=== PATIENT | male | born 1945 | race Caucasian/White ===

== ENCOUNTER → 2018-10-13 | Outpatient (CLI) | payer MEDICARE, OTHER ==
[2018-10-13 10:32] LABS: ABG BASE EXCESS 6.1 MMOL/L (-2.5-2.5); ABG OXYGEN SATURATION 96 % (94-100); ABG PCO2 48 MMHG (35-45); ABG PH 7.42 (7.37-7.43); ABG PO2 68 MMHG (79-93); ABG TCO2 31.9 MMOL/L (21.0-31.0)
[2018-10-13 10:33] LABS: BUN/CREATININE RATIO 16; CREATININE SERUM 0.99 MG/DL (0.60-1.30); GFR ESTIMATED > 60
[2018-10-13 10:34] LABS: ALLENS TEST YES-POS; INSPIRED O2 ROOM AIR; PATIENT TEMP 98.7; VENTILATOR NO
== END ==
LOC: LAB 09:35
PROVIDERS: ATTEND Nurse Practitioner Family
DX: J44.9 Chronic obstructive pulmonary disease, unspecified (principal); E66.01 Morbid (severe) obesity due to excess calories; G47.30 Sleep apnea, unspecified; E66.9 Obesity, unspecified
CPT/HCPCS: 36415; 82565; 82805; 84520

== ENCOUNTER → 2018-10-28 | Outpatient (CLI) | payer MEDICARE, OTHER ==
[~2018-10-28] MED LIST: IOHEXOL 350 MG/ML 100 ML (OMNIPAQUE 350) VIAL IV ONE; NS 100 ML (IVPB) BAG IV ONE; RECEIVED CONTRAST (Hold Metformin) IV SCH; RT-ALBUTEROL SULF 2.5 MG/3 ML PRE-MIX VIAL INH ONE; RT-ALBUTEROL SULF 2.5 MG/3 ML PRE-MIX VIAL ONE
--- NOTE | 2018-10-28 14:39 | Diagnostic Imaging Report ---
PROCEDURE: CT chest with contrast only. TECHNIQUE: Multiple contiguous axial images were obtained through the chest after administration of intravenous contrast. INDICATION: Lung nodule. COMPARISON: There are no prior CT chest examinations available for comparison. FINDINGS: There are two roughly 6 mm noncalcified nodules in the right midlung (images 28-30 of 74). There may also be a 7 mm nodule in the anterior aspect of the right midlung (image 32 of 74). I suspect that these nodules are benign. Even so, I would recommend that a short-term (6 month) followup CT chest exam be performed for further study. There is no other parenchymal lung mass identified. There is no sign of failure, pneumonia or a pleural effusion to indicate an acute abnormality. The heart size is within normal limits. There are dense coronary artery calcifications evident. The aorta is not abnormally dilated and there is no sign of dissection. There is no defect within the pulmonary arteries to indicate a pulmonary embolus. There is no mediastinal or hilar adenopathy. Thyroid gland, where visualized, is unremarkable. The sections through the upper abdomen show that in the interval since the previous CT angio with bilateral runoffs exam of 10/01/2012, the gallstones within the gallbladder have increased in size. There is still no evidence for acute cholecystitis. The benign-appearing low-density nodule associated with the right adrenal gland seen previously is again evident and no different. The suspected cyst in the left lobe of the liver noted on the prior study is also unchanged. There does appear to be an aortic stent graft in place. The bone windows show no evidence for fracture or for destructive lesion. There are sternotomy wires and surgical clips evident. IMPRESSION: 1. There are three small noncalcified nodules in the right midlung. These are most likely benign. Recommendations as above. 2. There is no acute cardiopulmonary abnormality evident. 3. There is coronary artery disease and evidence of prior cardiac surgery. 4. There is cholelithiasis but there is no sign of acute cholecystitis. If further evaluation of the gallbladder is desired, then ultrasound would be recommended. 5. The right adrenal nodule appears stable and is most likely benign. Dictated by: Dictated on workstation # [id number]
== END ==
LOC: RT 12:26
PROVIDERS: ATTEND Nurse Practitioner Family
DX: J44.9 Chronic obstructive pulmonary disease, unspecified (principal); G47.30 Sleep apnea, unspecified; E66.01 Morbid (severe) obesity due to excess calories; R91.8 Other nonspecific abnormal finding of lung field; I25.10 Atherosclerotic heart disease of native coronary artery without angina pectoris; K80.20 Calculus of gallbladder without cholecystitis without obstruction
CPT/HCPCS: 71260; 94060; 94726; 94729

== ENCOUNTER → 2019-05-03 | Outpatient (CLI) | payer MEDICARE, OTHER ==
[2019-05-03 17:51] LABS: BUN/CREATININE RATIO 13; CREATININE SERUM 1.11 MG/DL (0.60-1.30); GFR ESTIMATED > 60
--- NOTE | 2019-05-11 09:27 | Diagnostic Imaging Report ---
PROCEDURE: CT chest with contrast only. TECHNIQUE: Multiple contiguous axial images were obtained through the chest after administration of intravenous contrast. Auto Exposure Controls were utilized during the CT exam to meet ALARA standards for radiation dose reduction. INDICATION: Followup lung nodule COMPARISON: CT chest of 10/28/2018 FINDINGS: Lungs and airway: No endoluminal nodule within the trachea. Stable linear 5 mm nodule along the left major fissure compatible with a benign intrapulmonary lymph node. Ill-defined 7 mm nodule in the upper lobe located along the minor fissure is stable and has a lentiform shape, also indicative of benign intrapulmonary lymph node. Lastly, there are two unchanged 4-5 mm pulmonary nodules in the superior segment of the right lower lobe near the major fissure. No new pulmonary nodule. Pleura: No pleural effusion or pneumothorax. Heart and mediastinum: Visualized thyroid is normal. No supraclavicular or axillary lymphadenopathy. No mediastinal, hilar or juxtaphrenic lymphadenopathy. Heart is mildly enlarged and status post CABG. No pericardial effusion. Normal caliber thoracic aorta. Upper abdomen: Partially imaged abdominal aortic aneurysm status post stent graft repair. Cholelithiasis is unchanged. Stable low-attenuation right adrenal nodule likely represents a benign adenoma. Hepatic cyst is unchanged. Musculoskeletal: No worrisome focal osseous lesions. IMPRESSION: 1. Diffuse scattered small pulmonary nodules are stable and can be considered benign in nature given long-term stability and small size. 2. No abnormality that would require dedicated followup imaging. Dictated by: Dictated on workstation # [id number]
== END ==
LOC: RAD 16:56
PROVIDERS: ATTEND Nurse Practitioner Family
DX: E66.01 Morbid (severe) obesity due to excess calories (principal); G47.30 Sleep apnea, unspecified; J44.9 Chronic obstructive pulmonary disease, unspecified; R91.8 Other nonspecific abnormal finding of lung field
CPT/HCPCS: 36415; 71260; 82565; 84520

== ENCOUNTER → 2020-05-04 | Outpatient (CLI) | payer MEDICARE, OTHER ==
[~2020-05-04] MED LIST changes: -IOHEXOL 350 MG/ML 100 ML (OMNIPAQUE 350) VIAL IV ONE; -NS 100 ML (IVPB) BAG IV ONE; -RECEIVED CONTRAST (Hold Metformin) IV SCH; -RT-ALBUTEROL SULF 2.5 MG/3 ML PRE-MIX VIAL ONE
== END ==
LOC: RT 10:13
PROVIDERS: ATTEND Nurse Practitioner Family
DX: J44.9 Chronic obstructive pulmonary disease, unspecified (principal)
CPT/HCPCS: 94060; 94726; 94729

== ENCOUNTER 2022-03-27 07:50 | Inpatient (IN) | payer MEDICARE, OTHER ==
[~2022-03-27] VITALS: Ht 172.7 cm; Wt 124.9 kg
--- NOTE | 2022-03-27 08:26 | History & Physical ---
History of Present Illness HPI/Chief Complaint CC: NSTEMI HPI: This is a 76yoWM clinic patient of Dr Edmondson and Dr Brizuela who has a h/o CABG 3-V, AAA repair, carotid stenosis with CHF and CKD who presents to 512 following worsened dyspnea at [facility] and more elevated troponin in need of Cardiology care. Dr Simon was consulted and will perform a cardiac cath. Source: patient Exam Limitations: no limitations Date Seen 03/27/22 Time Seen by a Provider: 11:00 Attending Physician No,Local Physician PCP Admitting Physician: Moira Steele DO Attending Physician: Moira Steele DO Referring Physician Date of Admission Home Medications & Allergies Home Medications Reviewed patient Home Medication Reconciliation performed by pharmacy medication reconciliations operations and maintenance technician and/or nursing. Patients Allergies have been reviewed. Allergies Allergies Coded Allergies No Allergy Information Available (Unverified10/28/18) Past Vsxstrr-Xxumvz-Nnqhdd Hx Past Med/Social Hx: Reviewed Nursing Past Med/Soc Hx, Reviewed and Corrections made Patient Social History Marrital Status: Employed/Student: retired ([employer]) Alcohol Use: Denies Use Smoking Status: Former Smoker Past Medical History Surgeries: Abdominal, CABG, Vascular Surgery Respiratory: Sleep Apnea Cardiac: Atrial Fibrillation, Cardiomyopathy, Chronic Edema/Swelling, Coronary Artery Disease, High Cholesterol, Hypertension Neurological: Neuropathy Genitourinary: Benign Prostatic Hyperpl, Renal Failure Gastrointestinal: Gastroesophageal Reflux Musculoskeletal: Arthritis Endocrine: Diabetes, Non-Insulin dep Review of Systems Constitutional: see HPI, malaise, weakness EENTM: no symptoms reported Respiratory: dyspnea on exertion, short of breath, wheezing Cardiovascular: chest pain Gastrointestinal: no symptoms reported Physical Exam Physical Exam Vital Signs Vital Signs - First Documented 03/27/22 10:00 Temp 36.0 Pulse 89 Resp 20 B/P (MAP) 138/80 (99) Pulse Ox 98 O2 Delivery Nasal Cannula O2 Flow Rate 2.00 Capillary Refill : Height, Weight, BMI Height: '" Weight: lbs. oz. kg; BMI Method: General Appearance: No Apparent Distress, WD/WN, Chronically ill, Obese Eyes: Bilateral Eye Normal Inspection, Bilateral Eye PERRL HEENT: PERRL/EOMI, Normal ENT Inspection, Pharynx Normal Neck: Full Range of Motion, Normal Inspection, Non Tender, Supple, Carotid Bruit Respiratory: Chest Non Tender, No Respiratory Distress, Accessory Muscle Use, Crackles, Decreased Breath Sounds, Wheezing Cardiovascular: No Gallop, No JVD, No Murmur, Normal Peripheral Pulses, Irregularly Irregular, Tachycardia Gastrointestinal: Normal Bowel Sounds, No Organomegaly, No Pulsatile Mass, Non Tender, Soft Back: Normal Inspection, No CVA Tenderness, No Vertebral Tenderness Extremity: Normal Capillary Refill, Normal Inspection, Normal Range of Motion, Non Tender, No Calf Tenderness, Pedal Edema Neurologic/Psychiatric: Alert, Oriented x3, No Motor/Sensory Deficits, Normal Mood/Affect Skin: Normal Color, Warm/Dry Lymphatic: No Adenopathy Results Results/Procedures Labs Laboratory Tests 03/27/22 11:09 Patient resulted labs reviewed. Assessment/Plan Admission Diagnosis Assessment: NSTEMI needs cath CABG 3-V hx AAA repair Carotid stenosis AECHF Volume overload CKD Plan: Monitor O2 Lasix Cath Monitor closely Admission Status: Inpatient Order (span 2 midnights) Reason for Inpatient Admission: nstemi Diagnosis/Problems Diagnosis/Problems (1) Non-ST elevation myocardial infarction (NSTEMI), initial care episode (2) Chronic obstructive pulmonary disease (3) Permanent atrial fibrillation (4) Morbid obesity (5) Acute HFrEF (heart failure with reduced ejection fraction) (6) Stage 3a chronic kidney disease (7) Acute on chronic respiratory failure with hypoxemia (8) Type 2 diabetes mellitus with complication MOIRA STEELE DO Mar 27, 2022 08:26
[2022-03-27] MEDS ORDERED: polyethylene glycoL POWDER 17 GM (MIRALAX) PACK PO PRN (08:30)
[2022-03-27] MEDS ORDERED: ACETAMINOPHEN 325 MG TABLET PO PRN (08:30)
[2022-03-27] MEDS ORDERED: BISACODYL 10 MG SUPP (DULCOLAX) PR PRN (08:30)
[2022-03-27] MEDS ORDERED: ONDANSETRON 4 MG (ZOFRAN) ORAL DISSOLVE TAB PO PRN (08:30)
[2022-03-27] MEDS ORDERED: ONDANSETRON 4 MG/2 ML (SDV) Z0FRAN IV PRN (08:30)
[2022-03-27] MEDS ORDERED: ANTACID SUSP 30 ML UDC (MYLANTA) PO PRN (08:30)
[2022-03-27] MEDS ORDERED: MILK OF MAGNESIA 400 MG/5 ML 30 ML UDC PO PRN (08:30)
[2022-03-27] MEDS ORDERED: morphine INJ 4 MG/ML 1 ML (VIAL/SYRINGE) IV PRN (08:30)
[2022-03-27] MEDS ORDERED: diphenhydrAMINE 50 MG/ML INJ (BENADRYL) IVP PRN (08:30)
[2022-03-27] MEDS ORDERED: CALCIUM CARBONATE 500 MG (TUMS) TAB.CHEW PO PRN (08:30)
[2022-03-27] MEDS ORDERED: MELATONIN 3 MG TABLET PO PRN (08:30)
[2022-03-27] MEDS ORDERED: diphenhydrAMINE 25 MG TAB (BENADRYL) PO PRN (08:30)
[2022-03-27] MEDS ORDERED: LACTULOSE SYRUP 10GM/15ML (ENULOSE) 30ML UDC PO PRN (08:30)
[2022-03-27] MEDS ORDERED: ASPIRIN E.C. 81 MG (ECOTRIN) TAB PO SCH (09:00)
[2022-03-27 10:00] VITALS: BP 138/80
[2022-03-27] MEDS: SENNOSIDES 8.6 MG (SENOKOT) TAB PO SCH ×2 (10:18→20:41)
[2022-03-27] MEDS: DOCUSATE SODIUM 100 MG (COLACE) CAP PO SCH ×2 (10:18→20:41)
[2022-03-27 11:30] LABS: POTASSIUM 4.1 MMOL/L (3.6-5.0)
[2022-03-27 11:35] LABS: CREATININE SERUM 1.24 MG/DL (0.60-1.30)
[2022-03-27 12:00] VITALS: BP 147/95
[2022-03-27] MEDS: inSUlin ASPART (NovoLOG) 1 UNIT/0.01 ML (CHARGE PER UNIT) SC SCH ×3 (12:21→22:19)
--- NOTE | 2022-03-27 14:08 | Consultation-Cardiology ---
HPI-Cardiology Cardiology Consultation: Date of Consultation 03/27/22 Date of Admission 03/27/22 Attending Physician Kyra,Local Physician Admitting Physician Admitting Physician: Moira Gibbons DO Attending Physician: Moira Gibbons DO Consulting Physician ELEAZAR YANG JR, MD HPI: Time Seen by a Provider: 13:05 Chief Complaint: REASON FOR CONSULTATION: Possible NSTEMI. I had the pleasure of seeing Robert on the cardiac stepdown unit at [facility] in [place], [place] today. He has a history of coronary artery disease with coronary artery bypass surgery x3 in 2010 and permanent atrial fibrillation. He has been following with a user interface designer in [place]. A couple of weeks ago he was having problems with his gout and was started on medication for this. He is not sure what medication this was but he believes it may have been allopurinol. After taking this medication, he started having worsening lower extremity edema. He then felt that so he was retaining fluid and became progressively more short of breath. At times when he was very short of breath, he would also get a tightness in his chest. Because the symptoms were getting worse, he went to the emergency room at [facility] for further evaluation. He was diagnosed with probable heart failure and admitted to the hospital. During his evaluation, he was found to have an elevated troponin level and because of this, was transferred to our facility for further evaluation. He did receive some intravenous furosemide at the outside hospital and his edema and breathing have started to improve but are not completely back to baseline. He does get palpitations from time to time, mainly when he is exerting himself. He denies associated symptoms with the palpitations. He denies paroxysmal nocturnal dyspnea, orthopnea, lightheadedness, or syncope. Because of the abnormal troponin level, a cardiology consultation was requested. He has been taking warfarin since 2010 due to the atrial fibrillation. His last dose of warfarin was 2 days ago. He denies any previous history of heart failure or a stroke. Certain portions of this document may have been dictated utilizing voice recognition technology. Inherent to this technology, typographical and grammat ical errors may exist. As much as I am diligent to identify and correct these mistakes, some errors may remain in the document. Review of Systems-Cardiology Review of Systems Other comments Review of 10 organ systems is as per the history of present illness, otherwise negative. AKR-Hbchkz-Bgymcj Hx Patient Social History Marrital Status: Smoking Status: Former Smoker Have you traveled recently?: No Alcohol Use?: No Pt feels they are or have been: No Past Medical History PMH As described under Assessment. Family Medical History Family Medical History: He did not report a family history of premature coronary artery disease. Allergies and Home Medications Allergies Coded Allergies: No Allergy Information Available (Unverified , 10/28/18) Patient Home Medication List Home Medication List Reviewed: Yes Aspirin (Aspirin EC) 81 Mg Tablet.dr, 81 MG PO HS, (Reported) Entered as Reported by: JHON HOLLY on 03/27/221557 Last Action: Reviewed Furosemide (Furosemide) 40 Mg Tablet, 40 MG PO DAILY, (Reported) Entered as Reported by: JHON HOLLY on 03/27/221557 Last Action: Reviewed Metformin HCl (Metformin HCl ER) 500 Mg Tab.er.24h, 500 MG PO BID, (Reported) Entered as Reported by: JHON HOLLY on 03/27/221557 Last Action: Reviewed Metoprolol Tartrate (Metoprolol Tartrate) 100 Mg Tablet, 100 MG PO BID, (Reported) Entered as Reported by: JHON HOLLY on 03/27/221557 Last Action: Reviewed Potassium Chloride (Potassium Chloride) 20 Meq Tablet.er, 20 MEQ PO DAILY, (Reported) Entered as Reported by: JHON HOLLY on 03/27/221557 Last Action: Reviewed Warfarin Sodium (Warfarin Sodium) 5 Mg Tablet, 10 MG PO MO,WE,FR @1800, (Reported) Entered as Reported by: JHON HOLLY on 03/27/221557 Last Action: Reviewed Warfarin Sodium (Warfarin Sodium) 5 Mg Tablet, 7.5 MG PO BYRD,,TH,SA @1800, (Reported) Entered as Reported by: JHON HOLLY on 03/27/221557 Last Action: Reviewed [Kyolic Cholesterol ] , 1 EA PO BID, (Reported) Entered as Reported by: JHON HOLLY on 03/27/221557 Last Action: Reviewed Exam Vital Signs Vital Signs Date Time Temp Pulse Resp B/P (MAP) Pulse Ox O2 Delivery O2 Flow Rate FiO2 03/27/22 16:15 25 03/27/22 16:05 36.2 103 111/75 (87) 90 Nasal Cannula 2.00 Physical Exam General: Alert. No acute distress. Well nourished and appears stated age.He is obese. Eye: Extraocular movements are intact. Conjunctivae are clear. There are no xanthelasma. HENT: Normocephalic. Atraumatic. Carotid pulsations 2/2 without bruits. Neck: Jugular venous pressure does not appear elevated. No thyromegaly appreciated. Respiratory: Lungs are clear to auscultation but decreased at the bases bi laterally. Respirations are non-labored. Breath sounds are equal. Symmetrical chest wall expansion. Cardiovascular: Normal rate. Irregular rhythm. Distant S1/S2. No murmur. No gallop. Point of maximal impulse is not appear displaced. Good pulses equal in a ll extremities. 2+ bilateral pretibial edema. Gastrointestinal: Soft. Normal bowel sounds. Skin: Skin turgor is normal. There is no pallor. Musculoskeletal: No kyphosis or scoliosis appreciated. Neurologic: Alert and oriented to person, place, time. Cranial nerves 3-12 appear grossly intact. The patient has good motor tone strength in the upper and lower extremities bilaterally. Psychiatric: Cooperative. Appropriate mood & affect. Labs Laboratory Tests Test 03/27/22 11:09 03/27/22 13:52 03/27/22 15:23 Range/Units Sodium Level 144 135-145 MMOL/L Potassium Level 4.1 3.6-5.0 MMOL/L Chloride Level 103 98-107 MMOL/L Carbon Dioxide Level 32 21-32 MMOL/L Anion Gap 9 5-14 MMOL/L Blood Urea Nitrogen 20 H 7-18 MG/DL Creatinine 1.24 0.60-1.30 MG/DL Estimat Glomerular Filtration Rate 60 BUN/Creatinine Ratio 16 Glucose Level 177 H 70-105 MG/DL Calcium Level 9.0 8.5-10.1 MG/DL Troponin I 1.881 *H <0.028 NG/ML B-Type Natriuretic Peptide 249.4 H <100.0 PG/ML Prothrombin Time 23.3 H 12.2-14.7 SEC INR Comment 2.0 H 0.8-1.4 Glucometer 139 H 70-110 MG/DL Radiology ECHOCARDIOGRAM (PRELIMINARY REPORT) (03/26/2022): 1. This is a technically difficult study due to poor image quality secondary to patient's body habitus. 2. The left ventricle is mildly dilated with moderate concentric hypertrophy. There is moderate left ventricular systolic dysfunction with an estimated ejection fraction of 35-40%. Regional wall motion abnormalities cannot be excluded due to poor endocardial definition. 3. The left ventricular diastolic function is indeterminate. 4. The right ventricle is moderately dilated with normal function. TAPSE = 1.5 cm. 5. The right atrium is mildly dilated with an area of 21 cm. 6. The pulmonary artery pressure cannot be estimated on this study due to inadequate tricuspid regurgitant envelope. Diagnosis/Problems Diagnosis/Problems (1) Non-ST elevation myocardial infarction (NSTEMI), initial care episode Assessment & Plan: He appears to have suffered a non-ST elevation myocardial infarction. He has not had any significant ongoing chest discomfort. I recommend further evaluation with a cardiac catheterization. Unfortunately, we will probably need to use the femoral approach due to his previous history of bypass surgery with unknown graft locations. His INR is still 2. I would prefer his INR to be 1.8 or less before accessing the femoral artery. I have tentatively schedule him for tomorrow morning. I have restarted aspirin and beta-hilda. Warfarin is on hold for the procedure. I will also start statin medication. (2) Acute HFrEF (heart failure with reduced ejection fraction) Assessment & Plan: He and his family deny any previous history of heart failure. His BNP is elevated and he has shortness of breath and fluid retention. He now appears to be in acute heart failure and has a reduced ejection fraction. I will start him on metoprolol succinate. Until we see how he responds to this medication, I would be hesitant to add NATHANIEL inhibitor or ARB especially since his renal function may be somewhat tenuous. I have ordered a chest x-ray for the morning. (3) Cardiomyopathy Assessment & Plan: He has moderate left ventricular systolic dysfunction. Unclear whether or not this could be ischemic. He does not know of any previous history of a cardiomyopathy. His family confirmed the same. We will attempt to get him on the appropriate guideline directed medical therapy as tolerated by his blood pressure and renal function. His ejection fraction is just above the cutoff for recommending a LifeVest. (4) Permanent atrial fibrillation Assessment & Plan: He appears to have permanent atrial fibrillation. Unclear why he is not on a DOAC. His warfarin is now on hold for the cardiac catheterization. (5) Stage 3a chronic kidney disease Assessment & Plan: His GFR was 60 which puts him right at the cutoff for stage IIIa chronic kidney disease. He will be given plenty of intravenous fluid around the time of his cardiac catheterization to help reduce the risk of contrast-induced nephrotoxicity. (6) Chronic obstructive pulmonary disease Assessment & Plan: I suspect this condition may also be contributing to his shortness of breath. (7) Type 2 diabetes mellitus with complication Assessment & Plan: The hospitalist is managing this condition. Metformin will be placed on hold due to the cardiac catheterization. (8) Acute on chronic respiratory failure with hypoxemia Assessment & Plan: This is most likely multifactorial due to his chronic obstructive pulmonary disease as well as heart failure. (9) Morbid obesity Assessment & Plan: He needs to work on weight loss. ELEAZAR YANG JR, MD Mar 27, 2022 14:08
[2022-03-27 14:09] LABS: PROTHROMBIN TIME PATIENT 23.3 SEC (12.2-14.7)
[2022-03-27] MEDS: RT-ALBUTEROL SULF 2.5 MG/3 ML PRE-MIX VIAL INH SCH ×2 (14:28→19:04)
[2022-03-27] MEDS ORDERED: CATHETER FLUSH 10 ML SYR IV PRN (15:30)
[2022-03-27] MEDS ORDERED: METF-865 PO (15:58)
[2022-03-27] MEDS ORDERED: ASPI-1238 PO (15:58)
[2022-03-27] MEDS ORDERED: WARF-48 PO ×2 (15:58)
[2022-03-27] MEDS ORDERED: POTA-51 PO (15:58)
[2022-03-27] MEDS ORDERED: METO100T12 PO (15:58)
[2022-03-27] MEDS ORDERED: FURO40TA4 PO (15:58)
[2022-03-27] MEDS ORDERED: [UNRECOGNIZED DRUG - OTHER] PO (15:58)
[2022-03-27 16:05] VITALS: BP 111/75
[2022-03-27] MEDS ORDERED: meTOproloL SUCCINATE 50 MG (TOPROL XL) TAB PO NR (18:00)
[2022-03-27] MEDS ORDERED: warFARin 7.5 MG (COUMADIN) TAB PO SCH (18:00)
[2022-03-27 19:16] VITALS: BP 115/90
[2022-03-27] MEDS: GARLIC PO SCH (20:39)
[2022-03-27] MEDS: ROSUVASTATIN 20 MG (CRESTOR) TABLET PO SCH (20:41)
[2022-03-27] MEDS: ASPIRIN E.C. 81 MG (ECOTRIN) TAB PO SCH (20:41)
[2022-03-27 23:44] VITALS: BP 109/63
[2022-03-28 04:00] VITALS: BP 119/66
[2022-03-28 05:17] LABS: BASOPHILS % (AUTO) 1 % (0-10); EOSINOPHILS # (AUTO) 0.1 10^3/uL (0.0-0.3); EOSINOPHILS % (AUTO) 3 % (0-10); HEMATOCRIT 37 % (40-54); HEMOGLOBIN 11.9 g/dL (13.3-17.7); LYMPHOCYTES # (AUTO) 0.8 10^3/uL (1.0-4.0); LYMPHOCYTES % (AUTO) 19 % (12-44); MEAN CORPUSCULAR HEMOGLOBIN 33 pg (25-34); MEAN CORPUSCULAR HGB CONC 33 g/dL (32-36); MEAN CORPUSCULAR VOLUME 101 fL (80-99); MONOCYTES # (AUTO) 0.3 10^3/uL (0.0-1.0); MONOCYTES % (AUTO) 8 % (0-12); NEUTROPHILS % (AUTO) 69 % (42-75); PLATELET COUNT 113 10^3/uL (130-400); WHITE BLOOD COUNT 4.3 10^3/uL (4.3-11.0)
[2022-03-28 05:27] LABS: INR 1.8 (0.8-1.4); PROTHROMBIN TIME PATIENT 20.9 SEC (12.2-14.7)
[2022-03-28 05:41] LABS: ALBUMIN 3.5 GM/DL (3.2-4.5); POTASSIUM 4.2 MMOL/L (3.6-5.0)
[2022-03-28 05:42] LABS: CALCIUM 8.9 MG/DL (8.5-10.1)
[2022-03-28 05:43] LABS: TOTAL PROTEIN 6.1 GM/DL (6.4-8.2)
--- NOTE | 2022-03-28 05:44 | Progress Note - Hospitalist ---
Subjective HPI/CC On Admission Date Seen by Provider: Mar 28, 2022 Time Seen by Provider: 11:00 CC: NSTEMI HPI: This is a 76yoWM clinic patient of Dr Edmondson and Dr Brizuela who has a h/o CABG 3-V, AAA repair, carotid stenosis with CHF and CKD who presents to 512 following worsened dyspnea at [facility] and more elevated troponin in need of Cardiology care. Dr Simon was consulted and will perform a cardiac cath. Subjective/Events-last exam Pt is doing really well Had 3 stents placed without difficulty Platelets are 118,000 INR was 1.8 Creatinine was 1.28 Family is at the bedside Review of Systems General: Fatigue Pulmonary: Dyspnea Objective Exam Vital Signs Vital Signs Date Time Temp Pulse Resp B/P (MAP) Pulse Ox O2 Delivery O2 Flow Rate FiO2 03/28/22 19:00 107 03/28/22 16:00 36.0 21 120/85 (97) 97 Nasal Cannula 2.00 Capillary Refill : General Appearance: No Apparent Distress, WD/WN, Chronically ill, Obese Respiratory: Lungs Clear, Normal Breath Sounds, Accessory Muscle Use Cardiovascular: Regular Rate, Rhythm Neurologic/Psychiatric: Alert, Oriented x3, No Motor/Sensory Deficits, Normal Mood/Affect Results/Procedures Lab Laboratory Tests 03/28/22 04:39 03/28/22 05:12 Patient resulted labs reviewed. Assessment/Plan Assessment and Plan Assess & Plan/Chief Complaint Assessment: NSTEMI s/p cath with 3 stents placed CABG 3-V hx AAA repair Carotid stenosis AECHF Volume overload CKD Plan: Monitor O2 Lasix Cath appreciated Monitor closely Diagnosis/Problems Diagnosis/Problems (1) Non-ST elevation myocardial infarction (NSTEMI), initial care episode (2) Chronic obstructive pulmonary disease (3) Permanent atrial fibrillation (4) Morbid obesity (5) Acute HFrEF (heart failure with reduced ejection fraction) (6) Stage 3a chronic kidney disease (7) Acute on chronic respiratory failure with hypoxemia (8) Type 2 diabetes mellitus with complication CHRISTIAN STEELE DO Mar 28, 2022 05:44
[2022-03-28 05:45] LABS: BILIRUBIN,TOTAL 0.6 MG/DL (0.1-1.0)
[2022-03-28 05:47] LABS: CREATININE SERUM 1.28 MG/DL (0.60-1.30)
[2022-03-28] MEDS: inSUlin ASPART (NovoLOG) 1 UNIT/0.01 ML (CHARGE PER UNIT) SC SCH ×4 (05:58→21:08)
[2022-03-28] MEDS ORDERED: HEParin (CATH LAB) 2,000 ML IV ONE (07:16)
[2022-03-28] MEDS ORDERED: LIDOCAINE 1% INJ 20 ML VIAL ONE (07:16)
[2022-03-28] MEDS ORDERED: NS IV 1000 ML 1,000 ML ONE (07:16)
[2022-03-28] MEDS ORDERED: fentaNYL INJ 100 MCG/2 ML AMP ONE (07:47)
[2022-03-28] MEDS ORDERED: VERAPAMIL 5 MG/2 ML (CALAN) VIAL IV ONE (07:47)
[2022-03-28] MEDS ORDERED: NITRO DRIP 25000 MCG/D5W 250 ML IV ONE (07:48)
[2022-03-28] MEDS ORDERED: HEParin 1000 UNIT/ML (10ML VIAL) FOR BOLUS ONE (07:48)
[2022-03-28] MEDS ORDERED: MIDAZOLAM 5 MG/5 ML (VERSED) VIAL ONE (07:48)
--- NOTE | 2022-03-28 07:54 | Pre-Op Note & Conscious Sedat ---
Pre-Operative Progress Note H&P Reviewed The H&P was reviewed, patient examined and no changes noted. Date H&P Reviewed: Mar 28, 2022 Time H&P Reviewed: 07:53 Pre-Op Diagnosis: Non-ST elevation myocardial infarction, acute HFrEF, cardiomyopathy Conscious Sedation Pre-Proced ASA Score 3 For ASA 3 and 4: Consider anesthesia and medical clearance. Also, for patients with a history of failed moderate sedation consider anesthesia. Airway Lungs Heart ASA score ASA 1: a normal healthy patient ASA 2: a patient with a mild systemic disease (mid diabetes, controlled hypertension, obesity ASA 3: a patient with a severe systemic disease that limits activity (angina, COPD, prior Myocardial infarction) ASA 4: a patient with an incapacitating disease that is a constant threat to life (CHF, renal failure) ASA 5: a moribund patient not expected to survive 24 hrs. (ruptured aneurysm) ASA 6: a declared brain- patient whose organs are being harvested. For emergent operations, add the letter E after the classification Mallampati Classification Grade 3 Sedation Plan Analgesia, Amnesia, Plan communicated to team members, Discussed options with patient/fam, Discussed risks with patient/fam The patient is an appropriate candidate to undergo the planned procedure, sedation, and anesthesia. The patient immediately re-assessed prior to indication. ELEAZAR YANG JR, MD Mar 28, 2022 07:54
[2022-03-28 08:00] VITALS: BP 141/92
[2022-03-28] MEDS ORDERED: NS IV 1000 ML 1,000 ML IV ONE (08:00)
[2022-03-28] MEDS: meTOproloL SUCCINATE 50 MG (TOPROL XL) TAB PO SCH (08:01)
--- NOTE | 2022-03-28 08:33 | Diagnostic Imaging Report ---
INDICATION: Heart failure. PA and lateral views of the chest were obtained with comparison made to study of 05/03/2018 FINDINGS: Heart size is upper limits of normal. There is pulmonary venous congestion with increased interstitial markings. Yaneth B lines are also present. There is no pneumothorax or significant pleural fluid. Surgical findings are again noted in the mediastinum. There is an aortic stent graft in the abdomen. IMPRESSION: Pulmonary venous congestion and interstitial prominence is most likely due to congestive heart failure and interstitial pulmonary edema. Dictated by: Dictated on workstation # [id number]
[2022-03-28] MEDS: RT-ALBUTEROL SULF 2.5 MG/3 ML PRE-MIX VIAL INH SCH ×3 (08:53→20:18)
[2022-03-28] MEDS ORDERED: NS (IVPB) 250 ML ONE (09:15)
[2022-03-28] MEDS ORDERED: ADENOSINE 6 MG/2 ML (ADENOCARD) VIAL IV ONE (09:15)
[2022-03-28] MEDS ORDERED: CLOPIDOGREL 300 MG (PLAVIX) TABLET PO ONE (09:21)
[2022-03-28] MEDS ORDERED: ASPIRIN 81 MG CHEW (CHILDREN'S ASA) ONE (10:06)
[2022-03-28] MEDS ORDERED: NS IV 1000 ML 1,000 ML IV SCH (10:15)
--- NOTE | 2022-03-28 10:15 | Cardiac Cath Report ---
CARDIAC CATHETERIZATION DATE OF PROCEDURE: 03/28/2022 INDICATION: Non-ST elevation myocardial infarction, acute heart failure with reduced ejection fraction and cardiomyopathy. HISTORY: The patient is a 76 year old male with a known history of coronary artery disease who underwent coronary artery bypass surgery in 2010 with a left internal mammary artery graft to the left anterior descending coronary artery and saphenous vein grafts to an obtuse marginal branch and right coronary a rtery. He presented to an outside hospital with heart failure. He underwent an echocardiogram at that time that showed an ejection fraction of 35-40%. He also had an elevated troponin level consistent with a non-ST elevation myocardial infarction. He was then transferred to our hospital for possible cardiac catheterization. On the day of admission on 03/27, his INR was 2. We waited one additional night for the warfarin to metabolize. He is now referred for further evaluation with a cardiac catheterization. Given his current clinical status, he is considered moderately frail. His episode of acute heart failure with reduced ejection fraction (class IV) prior to this procedure was his first known diagnosis of heart failure. PROCEDURES PERFORMED: 1. Left heart catheterization with hemodynamic measurements. 2. Diagnostic [place] coronary angiography. 3. Diagnostic bypass graft angiography. 4. Drug-eluting stent placement to the proximal and mid segments of the saphenous vein graft to the obtuse marginal system. This was the ischemia related vessel for the non-ST elevation myocardial infarction. PROCEDURE DESCRIPTION: After informed consent and in the fasting state, left heart catheterization was performed through the left radial artery utilizing a 6 [place] system by percutaneous approach. Standard 5 [place] Cruz catheters were utilized for the diagnostic portion of the procedure. A 6 [place] LCB guide catheter was utilized for the percutaneous coronary intervention. All catheters were exchanged over a guidewire. Following the procedure, a vascular band was applied to the radial artery access site and the sheath was removed with good hemostasis. RESULTS: HEMODYNAMICS: The aortic pressure was 107/63 mmHg. The left ventricular pressure was 122/0 mmHg and the left ventricular end-diastolic pressure of 20 mmHg. There was no significant pressure gradient upon pullback across aortic valve. CORONARY ANGIOGRAPHY: The [place] coronary arteries were heavily calcified. Left main coronary artery: Totally occluded distally with PERFECTO-0 flow. Left anterior descending coronary artery: Totally occluded proximally with PERFECTO- 0 flow. Left circumflex coronary artery: Totally occluded proximally with PERFECTO-0 flow followed by bridging collaterals to the distal branches with PERFECTO-1 flow. Right coronary artery: Dominant and totally occluded in the midsegment with bridging collaterals, right to right collaterals and left to right collaterals with PERFECTO-1 flow. BYPASS GRAFT ANGIOGRAPHY: Left internal mammary artery graft to left anterior descending coronary artery: Widely patent with good distal runoff. Saphenous vein graft to right coronary artery: Totally occluded at the aorta. Saphenous vein graft to obtuse marginal branch: There were 2 sequential 90% stenoses in the proximal segment and another 90% stenosis in the midsegment with PERFECTO-1 flow to the [place] vessel. This was most likely the ischemia related vessel for the acute myocardial infarction. PERCUTANEOUS CORONARY INTERVENTION: Percutaneous coronary intervention was carried out on the saphenous vein graft to the obtuse marginal branch through a 6 [place] LCB guide catheter. I first placed a [employer] Filterwire into the vessel. However, I could not deployed the filter cage. The filter wire was removed. I subsequently cross the stenosis with a [place] guidewire. I then reprepped the Filterwire and again cross the stenosis with the device. I was then able to deploy the filter into the distal segment of the graft. The [place] guidewire was then removed. Intracoronary adenosine was administered. I subsequently performed coronary angioplasty with a 3 x 15 mm Trek balloon in the midsegment and then the proximal segment at a pressure of 10 rosy at each stenotic area. Additional intracoronary adenosine was administered. I subsequently deployed a 4.5 x 26 mm drug-eluting Resolute Rob stent in the mid segment of the graft at a pressure of 16 rosy. I then deployed a 5 x 30 mm drug- eluting Resolute Rob stent in the proximal segment of the graft at a pressure of 16 rosy. This was the longest 5 mm stent we had. There was then delayed flow although the filter basket was still in place. The recapture sheath was advanced over the Filterwire and the device was removed. Follow-up angiogram revealed PERFECTO-3 flow. However, there was some residual stenosis just distal to the second stent. I crossed the stenosis with the [place] guidewire and then I deployed an additional 4.5 x 12 mm drug-eluting Resolute Gunter stent overlapping the distal segment of the proximal stent at a pressure of 16 rosy. The overlapped segment was then postdilated with the stent balloon and a pressure of 18 rosy. Following stent placement, there was 0% residual stenosis with PERFECTO-3 flow. IMPRESSION: 1. Normal central aortic pressure with elevated left ventricular end-diastolic pressure. 2. Severe [place] three-vessel coronary artery disease as outlined above. 3. Patent left internal mammary artery graft to left anterior descending coronary artery. 4. Totally occluded saphenous vein graft to right coronary artery. 5. Severe disease of the proximal and mid segments of the saphenous vein graft to the obtuse marginal branch with delayed flow as outlined above. This was most likely at the ischemia related vessel for the non-ST elevation myocardial infarction. 6. Status post drug-eluting stent placement to the proximal and mid segments of the saphenous vein graft to the obtuse marginal branch with a 5 x 30 mm resolute Rob stent and a 4.5 x 12 mm resolute Gunter stent overlapped in the proximal segment and a 4.5 x 26 mm resolute Gunter stent in the midsegment with 0% residual stenosis and PERFECTO-3 flow. I did utilize a Filterwire to decrease the risk of no reflow in this bypass graft that is 11 years old. 7. The patient is known to have moderate left ventricular systolic dysfunction with an estimated ejection fraction of 35-40% by echocardiogram that was performed on 03/26/2022 at an outside facility. 8. The patient had acute heart failure with reduced ejection fraction that was present prior to this procedure. Certain portions of this document may have been dictated utilizing voice recognition technology. Inherent to this technology, typographical and grammatical errors may exist. As much as I am diligent to identify and correct these mistakes, some errors may remain in the document. ELEAZAR YANG JR, MD Mar 28, 2022 10:15
[2022-03-28] MEDS: SENNOSIDES 8.6 MG (SENOKOT) TAB PO SCH ×2 (11:06→20:57)
[2022-03-28] MEDS: DOCUSATE SODIUM 100 MG (COLACE) CAP PO SCH ×2 (11:06→20:58)
[2022-03-28] MEDS: GARLIC PO SCH ×2 (11:20→17:42)
[2022-03-28 11:33] VITALS: BP 120/79
[2022-03-28 16:00] VITALS: BP 120/85
[2022-03-28] MEDS ORDERED: NITROGLYCERIN 0.4 MG SL TABS BTL 25'S SL PRN (19:45)
[2022-03-28 20:00] VITALS: BP 150/94
[2022-03-28] MEDS: ASPIRIN E.C. 81 MG (ECOTRIN) TAB PO SCH (20:58)
[2022-03-28] MEDS: APIXABAN 5 MG (ELIQUIS) TABLET PO SCH (20:58)
[2022-03-28] MEDS: ROSUVASTATIN 20 MG (CRESTOR) TABLET PO SCH (20:58)
[2022-03-29] VITALS: BP 96/58
[2022-03-29 04:00] VITALS: BP 101/62
[2022-03-29 05:51] LABS: HEMOGLOBIN 12.2 g/dL (13.3-17.7); MEAN CORPUSCULAR VOLUME 101 fL (80-99)
[2022-03-29 05:53] LABS: BASOPHILS % (AUTO) 1 % (0-10); EOSINOPHILS # (AUTO) 0.1 10^3/uL (0.0-0.3); EOSINOPHILS % (AUTO) 2 % (0-10); HEMATOCRIT 37 % (40-54); LYMPHOCYTES # (AUTO) 0.7 10^3/uL (1.0-4.0); LYMPHOCYTES % (AUTO) 12 % (12-44); MEAN CORPUSCULAR HEMOGLOBIN 33 pg (25-34); MEAN CORPUSCULAR HGB CONC 33 g/dL (32-36); MEAN PLATELET VOLUME 10.9 fL (9.0-12.2); MONOCYTES # (AUTO) 0.4 10^3/uL (0.0-1.0); MONOCYTES % (AUTO) 7 % (0-12); NEUTROPHILS # (AUTO) 4.5 10^3/uL (1.8-7.8); NEUTROPHILS % (AUTO) 77 % (42-75); PLATELET COUNT 129 10^3/uL (130-400); WHITE BLOOD COUNT 5.9 10^3/uL (4.3-11.0)
--- NOTE | 2022-03-29 06:02 | Progress Note - Hospitalist ---
Subjective HPI/CC On Admission Date Seen by Provider: Mar 29, 2022 Time Seen by Provider: 10:30 CC: NSTEMI HPI: This is a 76yoWM clinic patient of Dr Edmondson and Dr Brizuela who has a h/o CABG 3-V, AAA repair, carotid stenosis with CHF and CKD who presents to 512 following worsened dyspnea at [facility] and more elevated troponin in need of Cardiology care. Dr Amin was consulted and will perform a cardiac cath. Subjective/Events-last exam Patient doing better Volume overload required IV Lasix and Mccain cath Dr Amin appreciated at bedside Loose stools reported Review of Systems Pulmonary: Dyspnea Cardiovascular: Edema Objective Exam Vital Signs Vital Signs Date Time Temp Pulse Resp B/P (MAP) Pulse Ox O2 Delivery O2 Flow Rate FiO2 03/29/22 19:44 93 Nasal Cannula 3.00 03/29/22 19:00 102 03/29/22 16:18 36.4 26 135/80 (98) Capillary Refill : Less Than 3 Seconds General Appearance: WD/WN, Anxious, Mild Distress Respiratory: No Respiratory Distress, Accessory Muscle Use, Decreased Breath Sounds Cardiovascular: Regular Rate, Rhythm, Irregularly Irregular, Tachycardia Neurologic/Psychiatric: Alert, Oriented x3, No Motor/Sensory Deficits, Normal Mood/Affect Results/Procedures Lab Laboratory Tests 03/29/22 05:33 Patient resulted labs reviewed. Assessment/Plan Assessment and Plan Assess & Plan/Chief Complaint Assessment: NSTEMI s/p cath with 3 stents placed CABG 3-V hx AAA repair Carotid stenosis AECHF Volume overload CKD Plan: Monitor O2 Lasix Cath appreciated Monitor closely Mccain cath Diagnosis/Problems Diagnosis/Problems (1) Non-ST elevation myocardial infarction (NSTEMI), initial care episode (2) Chronic obstructive pulmonary disease (3) Permanent atrial fibrillation (4) Morbid obesity (5) Acute HFrEF (heart failure with reduced ejection fraction) (6) Stage 3a chronic kidney disease (7) Acute on chronic respiratory failure with hypoxemia (8) Type 2 diabetes mellitus with complication CHRISTIAN STEELE DO Mar 29, 2022 06:02
[2022-03-29 06:05] LABS: ALBUMIN 3.7 GM/DL (3.2-4.5); POTASSIUM 4.4 MMOL/L (3.6-5.0)
[2022-03-29 06:06] LABS: CALCIUM 9.1 MG/DL (8.5-10.1)
[2022-03-29 06:07] LABS: TOTAL PROTEIN 6.4 GM/DL (6.4-8.2)
[2022-03-29 06:08] LABS: INR 1.6 (0.8-1.4); PROTHROMBIN TIME PATIENT 19.6 SEC (12.2-14.7)
[2022-03-29 06:09] LABS: BILIRUBIN,TOTAL 0.8 MG/DL (0.1-1.0)
[2022-03-29 06:11] LABS: CREATININE SERUM 1.13 MG/DL (0.60-1.30)
[2022-03-29] MEDS: inSUlin ASPART (NovoLOG) 1 UNIT/0.01 ML (CHARGE PER UNIT) SC SCH ×4 (06:38→21:20)
[2022-03-29 08:00] VITALS: BP 139/81
[2022-03-29] MEDS: RT-ALBUTEROL SULF 2.5 MG/3 ML PRE-MIX VIAL INH SCH ×2 (08:03→19:44)
[2022-03-29] MEDS: meTOproloL SUCCINATE 50 MG (TOPROL XL) TAB PO SCH ×2 (08:04→21:19)
[2022-03-29] MEDS: GARLIC PO SCH ×2 (08:04→18:45)
[2022-03-29] MEDS: SENNOSIDES 8.6 MG (SENOKOT) TAB PO SCH ×3 (08:04→21:20)
[2022-03-29] MEDS: CLOPIDOGREL 75 MG (PLAVIX) TABLET PO SCH (08:04)
[2022-03-29] MEDS: APIXABAN 5 MG (ELIQUIS) TABLET PO SCH ×2 (08:05→21:19)
[2022-03-29] MEDS: DOCUSATE SODIUM 100 MG (COLACE) CAP PO SCH ×3 (08:05→21:20)
[2022-03-29] MEDS ORDERED: FUROSEMIDE 40 MG/4 ML INJ (LASIX) IVP ONE (08:15)
[2022-03-29 12:27] VITALS: BP 125/80
[2022-03-29 16:18] VITALS: BP 135/80
[2022-03-29] MEDS ORDERED: FUROSEMIDE 40 MG/4 ML INJ (LASIX) IVP NR (16:30)
--- NOTE | 2022-03-29 16:39 | Cardiology Progress Note ---
Progress Note-Cardiology Events since last exam Date Seen by Provider: Mar 29, 2022 Time Seen by Provider: 16:34 Events since last exam I am following him due to non-ST elevation myocardial infarction and acute heart failure with reduced ejection fraction that was present before his coronary intervention. He still feels fairly short of breath. His peripheral edema is improving but not resolved. He denies chest pain, palpitations, or syncope. He has been having persistent tachycardia today. Earlier today, he had a Mccain catheter placed. Certain portions of this document may have been dictated utilizing voice recognition technology. Inherent to this technology, typographical and grammatical errors may exist. As much as I am diligent to identify and correct these mistakes, some errors may remain in the document. Vitals Last set of Vitals Signs Vital Signs 03/29/22 03/29/22 12:27 16:18 Temp 36.4 Pulse 130 Resp 26 B/P (MAP) 135/80 (98) Pulse Ox 94 O2 Delivery Nasal Cannula O2 Flow Rate 2.00 Labs Labs Laboratory Tests 03/29/22 05:33 Exam Vital Signs Vital Signs Date Time Temp Pulse Resp B/P (MAP) Pulse Ox O2 Delivery O2 Flow Rate FiO2 03/29/22 16:18 36.4 130 26 135/80 (98) 94 Nasal Cannula 03/29/22 12:27 2.00 Physical Exam General: Alert. He is short of breath with sitting up in bed. He is wearing oxygen by nasal cannula. He is morbidly obese. Eye: No xanthelasma. HENT: Normocephalic. Neck: Jugular venous pressure does not appear elevated. Respiratory: Lungs are clear to auscultation but decreased at the bases bilaterally. Respirations are non-labored. Breath sounds are equal. Symmetrical chest wall expansion. Cardiovascular: Tachycardia with irregular rhythm. Distant S1/S2. No murmur. No gallop. 1+ bilateral pretibial edema. Gastrointestinal: Soft. Normal bowel sounds. Skin: Warm. Dry. Neurologic: Alert and oriented to person, place, time. Cranial nerves 3-11 grossly intact. Psychiatric: Cooperative. Appropriate mood & affect. Labs Laboratory Tests Test 03/28/22 17:07 03/28/22 21:04 03/29/22 05:33 03/29/22 12:14 Range/Units Glucometer 118 H 123 H 181 H 70-110 MG/DL White Blood Count 5.9 4.3-11.0 10^3/uL Red Blood Count 3.72 L 4.30-5.52 10^6/uL Hemoglobin 12.2 L 13.3-17.7 g/dL Hematocrit 37 L 40-54 % Mean Corpuscular Volume 101 H 80-99 fL Mean Corpuscular Hemoglobin 33 25-34 pg Mean Corpuscular Hemoglobin Concent 33 32-36 g/dL Red Cell Distribution Width 13.5 10.0-14.5 % Platelet Count 129 L 130-400 10^3/uL Mean Platelet Volume 10.9 9.0-12.2 fL Immature Granulocyte % (Auto) 1 % Neutrophils (%) (Auto) 77 H 42-75 % Lymphocytes (%) (Auto) 12 12-44 % Monocytes (%) (Auto) 7 0-12 % Eosinophils (%) (Auto) 2 0-10 % Basophils (%) (Auto) 1 0-10 % Neutrophils # (Auto) 4.5 1.8-7.8 10^3/uL Lymphocytes # (Auto) 0.7 L 1.0-4.0 10^3/uL Monocytes # (Auto) 0.4 0.0-1.0 10^3/uL Eosinophils # (Auto) 0.1 0.0-0.3 10^3/uL Basophils # (Auto) 0.0 0.0-0.1 10^3/uL Immature Granulocyte # (Auto) 0.1 0.0-0.1 10^3/uL Percent Immature Platelet Fraction 5.1 0.0-7.6 % Prothrombin Time 19.6 H 12.2-14.7 SEC INR Comment 1.6 H 0.8-1.4 Sodium Level 140 135-145 MMOL/L Potassium Level 4.4 3.6-5.0 MMOL/L Chloride Level 103 98-107 MMOL/L Carbon Dioxide Level 26 21-32 MMOL/L Anion Gap 11 5-14 MMOL/L Blood Urea Nitrogen 14 7-18 MG/DL Creatinine 1.13 0.60-1.30 MG/DL Estimat Glomerular Filtration Rate 67 BUN/Creatinine Ratio 12 Glucose Level 154 H 70-105 MG/DL Calcium Level 9.1 8.5-10.1 MG/DL Corrected Calcium 9.3 8.5-10.1 MG/DL Total Bilirubin 0.8 0.1-1.0 MG/DL Aspartate Amino Transf (AST/SGOT) 34 5-34 U/L Alanine Aminotransferase (ALT/SGPT) 24 0-55 U/L Alkaline Phosphatase 54 40-136 U/L Total Protein 6.4 6.4-8.2 GM/DL Albumin 3.7 3.2-4.5 GM/DL Diagnosis/Problems Diagnosis/Problems (1) Non-ST elevation myocardial infarction (NSTEMI), initial care episode Assessment & Plan: He appears to have suffered a non-ST elevation myocardial infarction which was treated with 3 drug-eluting stents to the vein graft to his obtuse marginal system. He has not had any significant ongoing chest discomfort. He is now on aspirin, clopidogrel, beta-hilda and statin medication. Since I have him on apixaban for the atrial fibrillation, I will plan to stop the aspirin at the time of discharge and leave him on dual pathway inhibition. (2) Acute HFrEF (heart failure with reduced ejection fraction) Assessment & Plan: He and his family deny any previous history of heart failure but he appears to be in heart failure at the time of his presentation to the outside hospital before he was transferred here. I have started him on metoprolol succinate and I will titrate up the dose as tolerated by his blood pressure. Until we see how he responds to this medication, I would be hesitant to add NATHANIEL inhibitor or ARB especially since his renal function may be somewhat tenuous. I have ordered a chest x-ray for the morning. (3) Cardiomyopathy Assessment & Plan: He has moderate left ventricular systolic dysfunction. Unclear whether or not this could be ischemic. He does not know of any previous history of a cardiomyopathy. His family confirmed the same. We will attempt to get him on the appropriate guideline directed medical therapy as tolerated by his blood pressure and renal function. His ejection fraction is just above the cutoff for recommending a LifeVest. (4) Permanent atrial fibrillation Assessment & Plan: He appears to have permanent atrial fibrillation. I changed his warfarin over to apixaban. Due to persistent tachycardia, I will increase the dose of metoprolol succinate. (5) Stage 3a chronic kidney disease Assessment & Plan: His GFR was 60 which puts him right at the cutoff for stage IIIa chronic kidney disease. He was given a fair amount of intravenous fluids around the time of his cardiac catheterization to help decrease the risk of contrast-induced nephrotoxicity. He received 1 dose of intravenous furosemide this morning and I will give him another 1 now. We will need to watch his renal function closely with the diuretic. (6) Chronic obstructive pulmonary disease Assessment & Plan: I suspect this condition may also be contributing to his shortness of breath. (7) Type 2 diabetes mellitus with complication Assessment & Plan: The hospitalist is managing this condition. Metformin is on hold due to the cardiac catheterization. This may be able to be resumed on 03/30. He may also benefit from an SGLT2 inhibitor given his heart failure. (8) Acute on chronic respiratory failure with hypoxemia Assessment & Plan: This is most likely multifactorial due to his chronic obstructive pulmonary disease as well as heart failure. (9) Morbid obesity Assessment & Plan: He needs to work on weight loss. ELEAZAR YANG JR, MD Mar 29, 2022 16:39
[2022-03-29 20:00] VITALS: BP 127/88
[2022-03-29] MEDS: ASPIRIN E.C. 81 MG (ECOTRIN) TAB PO SCH (21:19)
[2022-03-29] MEDS: ROSUVASTATIN 20 MG (CRESTOR) TABLET PO SCH (21:20)
[2022-03-30] VITALS (7 sets, daily range): BP systolic 105–156; BP diastolic 58–95
--- NOTE | 2022-03-30 05:03 | Progress Note - Hospitalist ---
Subjective HPI/CC On Admission Date Seen by Provider: Mar 30, 2022 Time Seen by Provider: 05:00 CC: NSTEMI HPI: This is a 76yoWM clinic patient of Dr Edmondson and Dr Brizuela who has a h/o CABG 3-V, AAA repair, carotid stenosis with CHF and CKD who presents to 512 following worsened dyspnea at [facility] and more elevated troponin in need of Cardiology care. Dr Amin was consulted and will perform a cardiac cath. Subjective/Events-last exam Pt did pretty well through the night Discontinued the catheter there was some blood and clots Volume overload proved INR pending Rest of labs pending Metoprolol ordered by Dr. Amin for Tachycardia with A-Fib Review of Systems General: Fatigue, Malaise Objective Exam Vital Signs Vital Signs Date Time Temp Pulse Resp B/P (MAP) Pulse Ox O2 Delivery O2 Flow Rate FiO2 03/30/22 15:37 36.4 91 18 118/65 (82) 94 Nasal Cannula 2.00 Capillary Refill : Less Than 3 Seconds General Appearance: No Apparent Distress, WD/WN, Chronically ill Respiratory: Lungs Clear, Normal Breath Sounds Cardiovascular: Regular Rate, Rhythm Neurologic/Psychiatric: Alert, Oriented x3, No Motor/Sensory Deficits, Normal Mood/Affect Results/Procedures Lab Laboratory Tests 03/30/22 04:55 Patient resulted labs reviewed. Assessment/Plan Assessment and Plan Assess & Plan/Chief Complaint Assessment: NSTEMI s/p cath with 3 stents placed CABG 3-V hx AAA repair Carotid stenosis AECHF Volume overload CKD Plan: Monitor O2 Lasix Cath appreciated Monitor closely Mccain cath DC Moved to fourth floor Diagnosis/Problems Diagnosis/Problems (1) Non-ST elevation myocardial infarction (NSTEMI), initial care episode (2) Chronic obstructive pulmonary disease (3) Permanent atrial fibrillation (4) Morbid obesity (5) Acute HFrEF (heart failure with reduced ejection fraction) (6) Stage 3a chronic kidney disease (7) Acute on chronic respiratory failure with hypoxemia (8) Type 2 diabetes mellitus with complication CHRISTIAN STEELE DO Mar 30, 2022 05:03
[2022-03-30 05:07] LABS: HEMOGLOBIN 12.6 g/dL (13.3-17.7); MEAN CORPUSCULAR HEMOGLOBIN 33 pg (25-34); MEAN PLATELET VOLUME 10.6 fL (9.0-12.2)
[2022-03-30 05:09] LABS: BASOPHILS % (AUTO) 1 % (0-10); EOSINOPHILS # (AUTO) 0.2 10^3/uL (0.0-0.3); EOSINOPHILS % (AUTO) 4 % (0-10); HEMATOCRIT 38 % (40-54); LYMPHOCYTES # (AUTO) 0.7 10^3/uL (1.0-4.0); LYMPHOCYTES % (AUTO) 13 % (12-44); MEAN CORPUSCULAR HGB CONC 33 g/dL (32-36); MEAN CORPUSCULAR VOLUME 99 fL (80-99); MONOCYTES # (AUTO) 0.5 10^3/uL (0.0-1.0); MONOCYTES % (AUTO) 9 % (0-12); NEUTROPHILS # (AUTO) 4.2 10^3/uL (1.8-7.8); NEUTROPHILS % (AUTO) 73 % (42-75); PLATELET COUNT 116 10^3/uL (130-400); WHITE BLOOD COUNT 5.7 10^3/uL (4.3-11.0)
[2022-03-30 05:17] LABS: ALBUMIN 3.5 GM/DL (3.2-4.5)
[2022-03-30 05:18] LABS: INR 1.5 (0.8-1.4); POTASSIUM 3.6 MMOL/L (3.6-5.0); PROTHROMBIN TIME PATIENT 18.3 SEC (12.2-14.7)
[2022-03-30 05:20] LABS: TOTAL PROTEIN 6.1 GM/DL (6.4-8.2)
[2022-03-30 05:22] LABS: BILIRUBIN,TOTAL 0.9 MG/DL (0.1-1.0)
[2022-03-30 05:24] LABS: CREATININE SERUM 1.19 MG/DL (0.60-1.30)
[2022-03-30] MEDS: inSUlin ASPART (NovoLOG) 1 UNIT/0.01 ML (CHARGE PER UNIT) SC SCH ×4 (06:35→22:28)
[2022-03-30] MEDS: RT-ALBUTEROL SULF 2.5 MG/3 ML PRE-MIX VIAL INH SCH ×3 (07:14→21:02)
[2022-03-30] MEDS: GARLIC PO SCH ×2 (08:02→17:08)
[2022-03-30] MEDS: SENNOSIDES 8.6 MG (SENOKOT) TAB PO SCH ×3 (08:03→22:29)
[2022-03-30] MEDS: APIXABAN 5 MG (ELIQUIS) TABLET PO SCH ×2 (08:03→19:50)
[2022-03-30] MEDS: meTOproloL SUCCINATE 50 MG (TOPROL XL) TAB PO SCH ×2 (08:03→19:50)
[2022-03-30] MEDS: CLOPIDOGREL 75 MG (PLAVIX) TABLET PO SCH (08:03)
[2022-03-30] MEDS: DOCUSATE SODIUM 100 MG (COLACE) CAP PO SCH ×3 (08:04→22:29)
[2022-03-30] MEDS ORDERED: meTOproloL SUCCINATE 50 MG (TOPROL XL) TAB PO NR (09:00)
[2022-03-30] MEDS ORDERED: meTOproloL SUCCINATE 50 MG (TOPROL XL) TAB PO SCH (09:00)
[2022-03-30] MEDS ORDERED: FUROSEMIDE 40 MG/4 ML INJ (LASIX) IVP NR (09:00)
[2022-03-30] MEDS ORDERED: SACUBITRIL/VALSARTAN 24/26 MG (ENTRESTO) TABLET PO NR (09:30)
[2022-03-30] MEDS ORDERED: EMPAGLIFLOZIN 10 MG TABLET (JARDIANCE) PO NR (09:30)
--- NOTE | 2022-03-30 10:37 | Diagnostic Imaging Report ---
INDICATION: Dyspnea, followup heart failure. Comparison: 03/28/2022. Discussion: Two views of the chest were obtained. Bilateral mixed interstitial and alveolar infiltrates are slightly decreased, likely resolving edema or pneumonia. Heart is upper limits of normal in size. Median sternotomy is stable. No pleural fluid or pneumothorax. No osseous abnormality. Impression: 1. Decreasing pulmonary infiltrates. Dictated by: Dictated on workstation # [id number]
--- NOTE | 2022-03-30 10:41 | Cardiology Progress Note ---
Progress Note-Cardiology Events since last exam Date Seen by Provider: Mar 30, 2022 Time Seen by Provider: 10:36 Events since last exam I am following him for non-ST elevation myocardial infarction and acute heart failure with reduced ejection fraction that was present at the time of admission and before for his cardiac catheterization. His breathing is gradually improving. His peripheral edema has nearly resolved. He denies chest discomfort, palpitations, or syncope. Certain portions of this document may have been dictated utilizing voice recognition technology. Inherent to this technology, typographical and grammatical errors may exist. As much as I am diligent to identify and correct these mistakes, some errors may remain in the document. Vitals Last set of Vitals Signs Vital Signs 03/30/22 08:08 Temp 36.4 Pulse 102 Resp 28 B/P (MAP) 156/95 (115) Pulse Ox 93 O2 Delivery Nasal Cannula O2 Flow Rate 2.00 Labs Labs Laboratory Tests 03/30/22 04:55 Exam Vital Signs Vital Signs Date Time Temp Pulse Resp B/P (MAP) Pulse Ox O2 Delivery O2 Flow Rate FiO2 03/30/22 08:08 36.4 102 28 156/95 (115) 93 Nasal Cannula 2.00 Physical Exam General: Alert. No acute distress. He is obese. He is wearing oxygen by nasal cannula. Eye: No xanthelasma. HENT: Normocephalic. Neck: Jugular venous pressure does not appear elevated. Respiratory: Lungs are clear to auscultation but decreased at the bases bilaterally. Respirations are non-labored. Breath sounds are equal. Symmetrical chest wall expansion. Cardiovascular: Normal rate. Irregular rhythm. Distant S1/S2. No murmur. No gallop. Trace bilateral pretibial edema. Gastrointestinal: Soft. Normal bowel sounds. Skin: Warm. Dry. Neurologic: Alert and oriented to person, place, time. Cranial nerves 3-11 grossly intact. Psychiatric: Cooperative. Appropriate mood & affect. Labs Laboratory Tests Test 03/29/22 12:14 03/29/22 16:40 03/30/22 04:55 Range/Units Glucometer 181 H 133 H 70-110 MG/DL White Blood Count 5.7 4.3-11.0 10^3/uL Red Blood Count 3.87 L 4.30-5.52 10^6/uL Hemoglobin 12.6 L 13.3-17.7 g/dL Hematocrit 38 L 40-54 % Mean Corpuscular Volume 99 80-99 fL Mean Corpuscular Hemoglobin 33 25-34 pg Mean Corpuscular Hemoglobin Concent 33 32-36 g/dL Red Cell Distribution Width 13.2 10.0-14.5 % Platelet Count 116 L 130-400 10^3/uL Mean Platelet Volume 10.6 9.0-12.2 fL Immature Granulocyte % (Auto) 1 % Neutrophils (%) (Auto) 73 42-75 % Lymphocytes (%) (Auto) 13 12-44 % Monocytes (%) (Auto) 9 0-12 % Eosinophils (%) (Auto) 4 0-10 % Basophils (%) (Auto) 1 0-10 % Neutrophils # (Auto) 4.2 1.8-7.8 10^3/uL Lymphocytes # (Auto) 0.7 L 1.0-4.0 10^3/uL Monocytes # (Auto) 0.5 0.0-1.0 10^3/uL Eosinophils # (Auto) 0.2 0.0-0.3 10^3/uL Basophils # (Auto) 0.0 0.0-0.1 10^3/uL Immature Granulocyte # (Auto) 0.0 0.0-0.1 10^3/uL Percent Immature Platelet Fraction 5.6 0.0-7.6 % Prothrombin Time 18.3 H 12.2-14.7 SEC INR Comment 1.5 H 0.8-1.4 Sodium Level 142 135-145 MMOL/L Potassium Level 3.6 3.6-5.0 MMOL/L Chloride Level 100 98-107 MMOL/L Carbon Dioxide Level 31 21-32 MMOL/L Anion Gap 11 5-14 MMOL/L Blood Urea Nitrogen 14 7-18 MG/DL Creatinine 1.19 0.60-1.30 MG/DL Estimat Glomerular Filtration Rate 63 BUN/Creatinine Ratio 12 Glucose Level 144 H 70-105 MG/DL Calcium Level 9.0 8.5-10.1 MG/DL Corrected Calcium 9.4 8.5-10.1 MG/DL Total Bilirubin 0.9 0.1-1.0 MG/DL Aspartate Amino Transf (AST/SGOT) 45 H 5-34 U/L Alanine Aminotransferase (ALT/SGPT) 25 0-55 U/L Alkaline Phosphatase 52 40-136 U/L Total Protein 6.1 L 6.4-8.2 GM/DL Albumin 3.5 3.2-4.5 GM/DL Diagnosis/Problems Diagnosis/Problems (1) Non-ST elevation myocardial infarction (NSTEMI), initial care episode Assessment & Plan: He appears to have suffered a non-ST elevation myocardial infarction which was treated with 3 drug-eluting stents to the vein graft to his obtuse marginal system. He has not had any significant ongoing chest discomfort. He is now on aspirin, clopidogrel, beta-hilda and statin medication. Since I have him on apixaban for the atrial fibrillation, I will plan to stop the aspirin at the time of discharge and leave him on dual pathway inhibition. (2) Acute HFrEF (heart failure with reduced ejection fraction) Assessment & Plan: He and his family deny any previous history of heart failure but he was in heart failure at the time of his presentation to the outside hospital before he was transferred here. Symptomatically he is improving. His chest x-ray from 03/30 appears improved. I have started him on metoprolol succinate and have titrated up the dose as tolerated by his blood pressure. Since his blood pressure and renal function seem to be stable, I will start him on Entresto today. I will also add Jardiance. I will hold off on restarting his home dose of furosemide and until we see how he responds to these medicat ions. (3) Cardiomyopathy Assessment & Plan: He has moderate left ventricular systolic dysfunction. Unclear whether or not this could be ischemic. He does not know of any previous history of a cardiomyopathy. His family confirmed the same. We will attempt to get him on the appropriate guideline directed medical therapy as tolerated by his blood pressure and renal function. His ejection fraction is just above the cutoff for recommending a LifeVest. (4) Permanent atrial fibrillation Assessment & Plan: He appears to have permanent atrial fibrillation. I changed his warfarin over to apixaban. Due to persistent tachycardia, I increased his dose of metoprolol succinate. Some of the tachycardia might be related to the heart failure. His heart rate now seems to be improving. (5) Stage 3a chronic kidney disease Assessment & Plan: His GFR was 60 at the time of admission which puts him right at the cutoff for stage IIIa chronic kidney disease. He was given a fair amount of intravenous fluids around the time of his cardiac catheterization to help decrease the risk of contrast-induced nephrotoxicity. His creatinine appears to have stabilized. We will need to watch this closely with the adjustment of his medication for heart failure. (6) Chronic obstructive pulmonary disease Assessment & Plan: I suspect this condition may also be contributing to his shortness of breath. (7) Type 2 diabetes mellitus with complication Assessment & Plan: The hospitalist is managing this condition. Metformin is on hold due to the cardiac catheterization. I am fine with resuming metformin at this point in time. I will also be starting him on Jardiance due to his heart failure. (8) Acute on chronic respiratory failure with hypoxemia Assessment & Plan: This is most likely multifactorial due to his chronic obstructive pulmonary disease as well as heart failure. (9) Morbid obesity Assessment & Plan: He needs to work on weight loss. ELEAZAR YANG JR, MD Mar 30, 2022 10:41
--- NOTE | 2022-03-30 12:01 | Physical Therapy Evaluation ---
PT Evaluation-General Medical Diagnosis Admission Date Mar 27, 2022 at 09:59 Medical Diagnosis: Dyspnea Onset Date: Mar 27, 2022 Therapy Diagnosis Therapy Diagnosis: Gait deficit Precautions Precautions/Isolations: Fall Prevention, Standard Precautions Weight Bear Status Right Lower Extremity: Right Full Weight Bearing Left Lower Extremity: Left Full Weight Bearing Referral Physician: Dr. Amin Reason for Referral: Evaluation/Treatment Medical History Reviewed History: Yes Social History Home: Single Level Current Living Status: Spouse Entry Into Home: Stairs With Railing PT Steps Into Home: 3 Prior Prior Level of Function SCALE: Activities may be completed with or without assistive devices. 9-Atuewnvguz-tglzzpo completes the activity by him/herself with no assistance from a helper. 5-Set-up or Clean-up Assistance-helper sets up or cleans up; patient completes activity. [place] assists only prior to or following the activity. 4-Supervision or Touching Assistance-helper provides verbal cues and/or touching/steadying and/or contact guard assistance as patient completes activity. Assistance may be provided throughout the activity or intermittently. 3-Partial/Moderate Assistance-helper does LESS THAN HALF the effort. [place] lifts, holds or supports trunk or limbs, but provides less than half the effort. 2-Substantial/Maximal Assistance-helper does MORE THAN HALF the effort. [place] lifts or holds trunk or limbs and provides more than half the effort. 4-Vilpwbupy-bkwgtj does ALL the effort. Patient does none of the effort to complete the activity. Or, the assistance of 2 or more helpers is required for the patient to complete the activity. If activity was not attempted, code reason: 7-Patient Refused. 9-Not Applicable-not attempted and the patient did not perform the activity before the current illness, exacerbation or injury. 10-Not Attempted due to Environmental Limitations-(lack of equipment, weather restraints, etc.). 88-Not Attempted due to Medical Conditions or Safety Concerns. Bed Mobility: 6 Transfers (B,C,W/C): 6 Gait: 6 Stairs: 6 Indoor Mobility (Ambulation): Independent Stairs: Independent Prior Devices Use: None Reports he uses a CPAP on 2 L at night PT Evaluation-Current Subjective Patient lying supine in bed upon PT arrival, agreeable to treatment. Rates pain currently at 0/10. ROM/Strength ROM Lower Extremities WFLs all planes bilaterally Strength Lower Extremities 4/5 all planes bilaterally. Sensory Vision: Functional Hearing: Functional Sensation Right Lower Extremit: Intact Sensation Left Lower Extremity: Intact Transfers Roll Left to Right (QC): 4 Sit to Lying (QC): 4 Lying to Sitting/Side of Bed(Q: 4 Sit to Stand (QC): 4 Chair/Dcl-vd-Kdlxh Xfer(QC): 4 Toilet Transfer (QC): 4 Gait Does the Patient Walk?: Yes Mode of Locomotion: Walk Anticipated Mode of Locomotion: Walk Walk 10 feet (QC): 4 Walk 50 ft with 2 Turns(QC): 4 Distance: 100 Gait Assistive Device: None Balance Sitting Static: Normal Sitting Dynamic: Normal Standing Static: Good Standing Dynamic: Good Assessment/Needs Patient tolerated treatment well. Performs all bed mobility and transfers with SBA. Patient ambulates 100 feet with no AD, with SBA and verbal cues for safety, progression, conservation of energy. Patient ambulates with RA and O2 upon sitting in bed is 90%; 92% on 2 L. O2 replaced and patient in bed post treatment with all needs met, nursing notified, call light in reach. Rehab Potential: Good PT Strainer Tender Goals Correction Goals PT Correction Goals Time Frame: Apr 26, 2022 Roll Left & Right (QC): 6 Sit to Lying (QC): 6 Lying-Sitting on Side/Bed(QC): 6 Sit to Stand (QC): 6 Chair/Xsi-ky-Iwydy Xfer(QC): 6 Toilet Transfer (QC): 6 Does the Patient Walk: Yes Walk 10 feet (QC): 6 Walk 50ft with 2 Turns (QC): 6 Walk 150 ft (QC): 6 1 Step (curb) (QC): 6 4 Steps (QC): 6 PT Plan Problem List Problem List: Activity Tolerance, Functional Strength, Safety, Balance, Gait, Transfer, Bed Mobility, ROM Treatment/Plan Treatment Plan: Continue Plan of Care Treatment Plan: Bed Mobility, Education, Functional Activity Jacob, Functional Strength, Group Therapy, Gait, Safety, Therapeutic Exercise, Transfers Treatment Duration: May 25, 2022 Frequency: 6 times per week Estimated Hrs Per Day: .25 hour per day Patient and/or Family Agrees t: Yes Safety Risks/Education Patient Education: Gait Training Teaching Recipient: Patient Teaching Methods: Demonstration, Discussion Response to Teaching: Verbalize Understanding, Return Demonstration Time/GCodes Time In: 1135 Time Out: 1150 Total Billed Treatment Time: 15 Total Billed Treatment Visit, JENNIFER Eaton PT Mar 30, 2022 12:01
[2022-03-30] MEDS: ROSUVASTATIN 20 MG (CRESTOR) TABLET PO SCH (19:50)
[2022-03-30] MEDS: ASPIRIN E.C. 81 MG (ECOTRIN) TAB PO SCH (19:50)
[2022-03-30] MEDS: SACUBITRIL/VALSARTAN 24/26 MG (ENTRESTO) TABLET PO SCH (19:51)
[2022-03-31 03:39] VITALS: BP 115/64
--- NOTE | 2022-03-31 05:14 | Progress Note - Hospitalist ---
Subjective HPI/CC On Admission Date Seen by Provider: Mar 31, 2022 CC: NSTEMI HPI: This is a 76yoWM clinic patient of Dr Edmondson and Dr Brizuela who has a h/o CABG 3-V, AAA repair, carotid stenosis with CHF and CKD who presents to 512 following worsened dyspnea at [facility] and more elevated troponin in need of Cardiology care. Dr Simon was consulted and will perform a cardiac cath. Objective Exam Vital Signs Vital Signs Date Time Temp Pulse Resp B/P (MAP) Pulse Ox O2 Delivery O2 Flow Rate FiO2 03/31/22 08:07 94 Room Air 2.00 03/31/22 07:57 36.4 88 18 109/68 (82) Capillary Refill : Less Than 3 Seconds Results/Procedures Lab Laboratory Tests 03/31/22 05:03 03/31/22 05:04 Patient resulted labs reviewed. Assessment/Plan Assessment and Plan Assess & Plan/Chief Complaint Assessment: NSTEMI s/p cath with 3 stents placed CABG 3-V hx AAA repair Carotid stenosis AECHF Volume overload CKD Plan: Monitor O2 Lasix Cath appreciated Monitor closely Mccain cath DC Moved to fourth floor Diagnosis/Problems Diagnosis/Problems (1) Non-ST elevation myocardial infarction (NSTEMI), initial care episode (2) Chronic obstructive pulmonary disease (3) Permanent atrial fibrillation (4) Morbid obesity (5) Acute HFrEF (heart failure with reduced ejection fraction) (6) Stage 3a chronic kidney disease (7) Acute on chronic respiratory failure with hypoxemia (8) Type 2 diabetes mellitus with complication CHRISTIAN STEELE DO Mar 31, 2022 05:14
[2022-03-31 05:26] LABS: BASOPHILS % (AUTO) 1 % (0-10); EOSINOPHILS # (AUTO) 0.3 10^3/uL (0.0-0.3); EOSINOPHILS % (AUTO) 6 % (0-10); HEMATOCRIT 39 % (40-54); HEMOGLOBIN 12.8 g/dL (13.3-17.7); LYMPHOCYTES # (AUTO) 0.7 10^3/uL (1.0-4.0); LYMPHOCYTES % (AUTO) 15 % (12-44); MEAN CORPUSCULAR HEMOGLOBIN 33 pg (25-34); MEAN CORPUSCULAR HGB CONC 33 g/dL (32-36); MEAN CORPUSCULAR VOLUME 99 fL (80-99); MEAN PLATELET VOLUME 10.7 fL (9.0-12.2); MONOCYTES # (AUTO) 0.4 10^3/uL (0.0-1.0); MONOCYTES % (AUTO) 9 % (0-12); NEUTROPHILS # (AUTO) 3.3 10^3/uL (1.8-7.8); NEUTROPHILS % (AUTO) 69 % (42-75); PLATELET COUNT 125 10^3/uL (130-400); WHITE BLOOD COUNT 4.8 10^3/uL (4.3-11.0)
[2022-03-31 05:45] LABS: POTASSIUM 3.5 MMOL/L (3.6-5.0)
[2022-03-31 05:46] LABS: CALCIUM 8.9 MG/DL (8.5-10.1)
[2022-03-31 05:50] LABS: CREATININE SERUM 1.35 MG/DL (0.60-1.30)
[2022-03-31] MEDS: inSUlin ASPART (NovoLOG) 1 UNIT/0.01 ML (CHARGE PER UNIT) SC SCH ×2 (06:08→11:04)
[2022-03-31] MEDS: RT-ALBUTEROL SULF 2.5 MG/3 ML PRE-MIX VIAL INH SCH (06:43)
[2022-03-31 07:57] VITALS: BP 109/68
[2022-03-31] MEDS: GARLIC PO SCH (08:04)
[2022-03-31] MEDS: SENNOSIDES 8.6 MG (SENOKOT) TAB PO SCH (08:04)
[2022-03-31] MEDS: APIXABAN 5 MG (ELIQUIS) TABLET PO SCH (08:04)
[2022-03-31] MEDS: CLOPIDOGREL 75 MG (PLAVIX) TABLET PO SCH (08:04)
[2022-03-31] MEDS: meTOproloL SUCCINATE 50 MG (TOPROL XL) TAB PO SCH (08:05)
[2022-03-31] MEDS: DOCUSATE SODIUM 100 MG (COLACE) CAP PO SCH (08:05)
[2022-03-31] MEDS: SACUBITRIL/VALSARTAN 24/26 MG (ENTRESTO) TABLET PO SCH (08:05)
[2022-03-31] MEDS ORDERED: EMPAGLIFLOZIN 10 MG TABLET (JARDIANCE) PO SCH (09:00)
[2022-03-31] MEDS ORDERED: APIX5TAB PO (10:54)
[2022-03-31] MEDS ORDERED: METO50TA7 PO (10:54)
[2022-03-31] MEDS ORDERED: CLOP75TA28 PO (10:54)
[2022-03-31] MEDS ORDERED: NITR0.4T42 SL (10:54)
[2022-03-31] MEDS ORDERED: SACU1TAB2 PO (10:54)
[2022-03-31] MEDS ORDERED: ROSU20TA32 PO (10:54)
[2022-03-31] MEDS ORDERED: EMPA10TA PO (10:54)
--- NOTE | 2022-03-31 10:58 | Cardiology Progress Note ---
Progress Note-Cardiology Events since last exam Date Seen by Provider: Mar 31, 2022 Time Seen by Provider: 10:57 Events since last exam I am following him due to acute heart failure and non-ST elevation myocardial infarction. He is feeling much better. He has been ambulating without significant issues. He denies chest discomfort, dyspnea at rest, palpitations, or syncope. His lower extremity edema has nearly resolved. He wants to go home today. Certain portions of this document may have been dictated utilizing voice recognition technology. Inherent to this technology, typographical and grammatical errors may exist. As much as I am diligent to identify and correct these mistakes, some errors may remain in the document. Vitals Last set of Vitals Signs Vital Signs 03/31/22 03/31/22 07:57 08:07 Temp 36.4 Pulse 88 Resp 18 B/P (MAP) 109/68 (82) Pulse Ox 94 O2 Delivery Room Air O2 Flow Rate 2.00 Labs Labs Laboratory Tests 03/31/22 05:03 03/31/22 05:04 Exam Vital Signs Vital Signs Date Time Temp Pulse Resp B/P (MAP) Pulse Ox O2 Delivery O2 Flow Rate FiO2 03/31/22 08:07 94 Room Air 2.00 03/31/22 07:57 36.4 88 18 109/68 (82) Physical Exam General: Alert. No acute distress. He is morbidly obese. Eye: No xanthelasma. HENT: Normocephalic. Neck: Jugular venous pressure does not appear elevated. Respiratory: Lungs are clear to auscultation but decreased at the bases bilaterally. Respirations are non-labored. Breath sounds are equal. Symmetrical chest wall expansion. Cardiovascular: Normal rate. Irregular rhythm. Distant S1/S2. No murmur. No gallop. Trace bilateral pretibial edema. Gastrointestinal: Soft. Normal bowel sounds. Skin: Warm. Dry. Neurologic: Alert and oriented to person, place, time. Cranial nerves 3-11 grossly intact. Psychiatric: Cooperative. Appropriate mood & affect. Labs Laboratory Tests Test 03/30/22 11:38 03/30/22 15:35 03/30/22 19:10 03/31/22 05:03 Range/Units Glucometer 155 H 137 H 188 H 142 H 70-110 MG/DL White Blood Count 4.8 4.3-11.0 10^3/uL Red Blood Count 3.90 L 4.30-5.52 10^6/uL Hemoglobin 12.8 L 13.3-17.7 g/dL Hematocrit 39 L 40-54 % Mean Corpuscular Volume 99 80-99 fL Mean Corpuscular Hemoglobin 33 25-34 pg Mean Corpuscular Hemoglobin Concent 33 32-36 g/dL Red Cell Distribution Width 13.2 10.0-14.5 % Platelet Count 125 L 130-400 10^3/uL Mean Platelet Volume 10.7 9.0-12.2 fL Immature Granulocyte % (Auto) 0 % Neutrophils (%) (Auto) 69 42-75 % Lymphocytes (%) (Auto) 15 12-44 % Monocytes (%) (Auto) 9 0-12 % Eosinophils (%) (Auto) 6 0-10 % Basophils (%) (Auto) 1 0-10 % Neutrophils # (Auto) 3.3 1.8-7.8 10^3/uL Lymphocytes # (Auto) 0.7 L 1.0-4.0 10^3/uL Monocytes # (Auto) 0.4 0.0-1.0 10^3/uL Eosinophils # (Auto) 0.3 0.0-0.3 10^3/uL Basophils # (Auto) 0.0 0.0-0.1 10^3/uL Immature Granulocyte # (Auto) 0.0 0.0-0.1 10^3/uL Test 03/31/22 05:04 Range/Units Sodium Level 143 135-145 MMOL/L Potassium Level 3.5 L 3.6-5.0 MMOL/L Chloride Level 101 98-107 MMOL/L Carbon Dioxide Level 27 21-32 MMOL/L Anion Gap 15 H 5-14 MMOL/L Blood Urea Nitrogen 19 H 7-18 MG/DL Creatinine 1.35 H 0.60-1.30 MG/DL Estimat Glomerular Filtration Rate 54 BUN/Creatinine Ratio 14 Glucose Level 142 H 70-105 MG/DL Calcium Level 8.9 8.5-10.1 MG/DL Diagnosis/Problems Diagnosis/Problems (1) Non-ST elevation myocardial infarction (NSTEMI), initial care episode Assessment & Plan: He suffered a non-ST elevation myocardial infarction which was treated with 3 drug-eluting stents to the vein graft to his obtuse marginal system. He has not had any significant ongoing chest discomfort. He is now on aspirin, clopidogrel, beta-hilda and statin medication. Since I have him on apixaban for the atrial fibrillation, I will plan to stop the aspirin at the time of discharge and leave him on dual pathway inhibition. (2) Acute HFrEF (heart failure with reduced ejection fraction) Assessment & Plan: He and his family deny any previous history of heart failure but he was in heart failure at the time of his presentation to the outside hospital before he was transferred here. Symptomatically has improved. His chest x-ray from 03/30 appeared improved. I have started him on metoprolol succinate and have titrated up the dose as tolerated by his blood pressure. I also started him on Entresto and Jardiance. He can restart his home dose of furosemide. I will hold off on starting a mineralocorticoid receptor hilda due to borderline low blood pressures and his chronic kidney disease. We may be able to start this as an outpatient after we see how he responds to the other medications. He has an appointment to see me in the office on Friday. (3) Cardiomyopathy Assessment & Plan: He has moderate left ventricular systolic dysfunction. Unclear whether or not this could be ischemic. He does not know of any previous history of a cardiomyopathy. His family confirmed the same. We will attempt to get him on the appropriate guideline directed medical therapy as tolerated by his blood pressure and renal function. His ejection fraction is just above the cutoff for recommending a LifeVest. (4) Permanent atrial fibrillation Assessment & Plan: He appears to have permanent atrial fibrillation. I changed his warfarin over to apixaban. Due to persistent tachycardia, I increased his dose of metoprolol succinate. Some of the tachycardia might be related to the heart failure. His heart rate now seems improved. (5) Stage 3a chronic kidney disease Assessment & Plan: His GFR was 60 at the time of admission which puts him right at the cutoff for stage IIIa chronic kidney disease. He was given a fair amount of intravenous fluids around the time of his cardiac catheterization to help decrease the risk of contrast-induced nephrotoxicity. His creatinine appears to have stabilized. We will need to watch this closely with the adjustment of his medication for heart failure. (6) Chronic obstructive pulmonary disease Assessment & Plan: I suspect this condition may also be contributing to his shortness of breath. (7) Type 2 diabetes mellitus with complication Assessment & Plan: The hospitalist is managing this condition. Metformin is on hold due to the cardiac catheterization. I am fine with resuming metformin at this point in time. I also started him on Jardiance due to his heart failure. (8) Acute on chronic respiratory failure with hypoxemia Assessment & Plan: This is most likely multifactorial due to his chronic obstructive pulmonary disease as well as heart failure. (9) Morbid obesity Assessment & Plan: He needs to work on weight loss. ELEAZAR YANG JR, MD Mar 31, 2022 10:58
--- NOTE | 2022-03-31 11:09 | Discharge Summary ---
Discharge Summary Hospital Course Was the Problem List Reviewed?: Yes Problems/Dx: (1) Non-ST elevation myocardial infarction (NSTEMI), initial care episode (2) Acute HFrEF (heart failure with reduced ejection fraction) (3) Cardiomyopathy (4) Permanent atrial fibrillation (5) Stage 3a chronic kidney disease (6) Chronic obstructive pulmonary disease (7) Type 2 diabetes mellitus with complication (8) Acute on chronic respiratory failure with hypoxemia (9) Morbid obesity Hospital Course Date of Admission: Mar 27, 2022 at 09:59 Admission Diagnosis : Family Physician/Provider: No,Local Physician Date of Discharge: 03/31/22 Discharge Diagnosis: [ ] Hospital Course: Patient had a lengthy hospital course after he was admitted for elevated troponin consistent with NSTEMI he had a cardiac catheterization with stents placed. Dr. Amin evaluated the patient and initiated diuresis with good results. Patient was deemed stable for discharge. Labs and Pending Lab Test: Laboratory Tests 03/30/22 11:38: Glucometer 155H 03/30/22 15:35: Glucometer 137H 03/30/22 19:10: Glucometer 188H 03/31/22 05:03: Glucometer 142H, White Blood Count 4.8, Red Blood Count 3.90L, Hemoglobin 12.8L, Hematocrit 39L, Mean Corpuscular Volume 99, Mean Corpuscular Hemoglobin 33, Mean Corpuscular Hemoglobin Concent 33, Red Cell Distribution Width 13.2, Platelet Count 125L, Mean Platelet Volume 10.7, Immature Granulocyte % (Auto) 0, Neutrophils (%) (Auto) 69, Lymphocytes (%) (Auto) 15, Monocytes (%) (Auto) 9, Eosinophils (%) (Auto) 6, Basophils (%) (Auto) 1, Neutrophils # (Auto) 3.3, Lymphocytes # (Auto) 0.7L, Monocytes # (Auto) 0.4, Eosinophils # (Auto) 0.3, Basophils # (Auto) 0.0, Immature Granulocyte # (Auto) 0.0 03/31/22 05:04: Sodium Level 143, Potassium Level 3.5L, Chloride Level 101, Carbon Dioxide Level 27, Anion Gap 15H, Blood Urea Nitrogen 19H, Creatinine 1.35H, Estimat Glomerular Filtration Rate 54, BUN/Creatinine Ratio 14, Glucose Level 142H, Calcium Level 8.9 Home Meds Active Jardiance (Empagliflozin) 10 Mg Tablet 10 Mg PO DAILY Entresto 24 mg-26 mg Tablet (Sacubitril/Valsartan) 24 Mg-26 Mg Tablet 0.5 Tab PO BID Metoprolol Succinate 50 Mg Tab.er.24h 100 Mg PO BID Nitroglycerin 0.4 Mg Tab.subl 0.4 Mg SL NEEDED PRN Rosuvastatin Calcium 20 Mg Tablet 20 Mg PO HS Clopidogrel (Clopidogrel Bisulfate) 75 Mg Tablet 75 Mg PO DAILY Eliquis (Apixaban) 5 Mg Tablet 5 Mg PO BID Reported [Kyolic Cholesterol ] 1 Ea PO BID Aspirin EC (Aspirin) 81 Mg Tablet.dr 81 Mg PO HS Furosemide 40 Mg Tablet 40 Mg PO DAILY Metformin HCl ER (Metformin HCl) 500 Mg Tab.er.24h 500 Mg PO BID Metoprolol Tartrate 100 Mg Tablet 100 Mg PO BID Potassium Chloride 20 Meq Tablet.er 20 Meq PO DAILY Warfarin Sodium 5 Mg Tablet 7.5 Mg PO BYRD,TU,TH,SA @1800 TAKES 1 & (5MG) TABS Warfarin Sodium 5 Mg Tablet 10 Mg PO MO,,FR @1800 TAKES 2 (5MG) TABS Assessment/Pt Instructions Cardiology as scheduled Discharge Planning: <30 minutes discharge planning Discharge Instructions Discharge Diet: Cardiac Diet Activity as Tolerated: Yes Discharge Physical Examination Vital Signs Vital Signs Date Time Temp Pulse Resp B/P (MAP) Pulse Ox O2 Delivery O2 Flow Rate FiO2 03/31/22 08:07 94 Room Air 2.00 03/31/22 07:57 36.4 88 18 109/68 (82) General Appearance: No Apparent Distress, WD/WN, Chronically ill Allergies: Coded Allergies: No Allergy Information Available (Unverified , 10/28/18) Discharge Summary Date of Admission Mar 27, 2022 at 09:59 Date of Discharge Discharge Date: Mar 31, 2022 Admission Diagnosis Assessment: NSTEMI needs cath CABG 3-V hx AAA repair Carotid stenosis AECHF Volume overload CKD Plan: Monitor O2 Lasix Cath Monitor closely Discharge Diagnosis Assessment: NSTEMI s/p cath with 3 stents placed CABG 3-V hx AAA repair Carotid stenosis AECHF Volume overload CKD Plan: Monitor O2 Lasix Cath appreciated Monitor closely Mccain cath DC Moved to fourth floor (1) Non-ST elevation myocardial infarction (NSTEMI), initial care episode Assessment & Plan: He appears to have suffered a non-ST elevation myocardial infarction which was treated with 3 drug-eluting stents to the vein graft to his obtuse marginal system. He has not had any significant ongoing chest discomfort. He is now on aspirin, clopidogrel, beta-hilda and statin medication. Since I have him on apixaban for the atrial fibrillation, I will plan to stop the aspirin at the time of discharge and leave him on dual pathway inhibition. (2) Acute HFrEF (heart failure with reduced ejection fraction) Assessment & Plan: He and his family deny any previous history of heart failure but he was in heart failure at the time of his presentation to the outside hospital before he was transferred here. Symptomatically he is improving. His chest x-ray from 03/30 appears improved. I have started him on metoprolol succinate and have titrated up the dose as tolerated by his blood pressure. Since his blood pressure and renal function seem to be stable, I will start him on Entresto today. I will also add Jardiance. I will hold off on restarting his home dose of furosemide and until we see how he responds to these medications. (3) Cardiomyopathy Assessment & Plan: He has moderate left ventricular systolic dysfunction. Unclear whether or not this could be ischemic. He does not know of any previous history of a cardiomyopathy. His family confirmed the same. We will attempt to get him on the appropriate guideline directed medical therapy as tolerated by his blood pressure and renal function. His ejection fraction is just above the cutoff for recommending a LifeVest. (4) Permanent atrial fibrillation Assessment & Plan: He appears to have permanent atrial fibrillation. I changed his warfarin over to apixaban. Due to persistent tachycardia, I increased his dose of metoprolol succinate. Some of the tachycardia might be related to the heart failure. His heart rate now seems to be improving. (5) Stage 3a chronic kidney disease Assessment & Plan: His GFR was 60 at the time of admission which puts him right at the cutoff for stage IIIa chronic kidney disease. He was given a fair amount of intravenous fluids around the time of his cardiac catheterization to help d ecrease the risk of contrast-induced nephrotoxicity. His creatinine appears to have stabilized. We will need to watch this closely with the adjustment of his medication for heart failure. (6) Chronic obstructive pulmonary disease Assessment & Plan: I suspect this condition may also be contributing to his shortness of breath. (7) Type 2 diabetes mellitus with complication Assessment & Plan: The hospitalist is managing this condition. Metformin is on hold due to the cardiac catheterization. I am fine with resuming metformin at this point in time. I will also be starting him on Jardiance due to his heart failure. (8) Acute on chronic respiratory failure with hypoxemia Assessment & Plan: This is most likely multifactorial due to his chronic obstructive pulmonary disease as well as heart failure. (9) Morbid obesity Assessment & Plan: He needs to work on weight loss. CHRISTIAN STEELE DO Mar 31, 2022 11:09
[2022-03-31 11:25] VITALS: BP 130/58
[2022-03-31 12:02] VITALS: BP 130/58
== END 2022-03-31 12:08 | disposition home or self-care (01) | DRG 246 ==
LOC: CSD 09:59 → 4TH 03-30 11:07
PROVIDERS: ADMIT Internal Medicine; ATTEND Internal Medicine
PROC: 027036Z Dilation of Coronary Artery, One Artery with Three Drug-eluting Intraluminal Devices, Percutaneous Approach (ICD-10-PCS; principal; 2022-03-28)
PROC: 4A023N7 Measurement of Cardiac Sampling and Pressure, Left Heart, Percutaneous Approach (ICD-10-PCS; 2022-03-28)
PROC: B2111ZZ Fluoroscopy of Multiple Coronary Arteries using Low Osmolar Contrast (ICD-10-PCS; 2022-03-28)
PROC: B2131ZZ Fluoroscopy of Multiple Coronary Artery Bypass Grafts using Low Osmolar Contrast (ICD-10-PCS; 2022-03-28)
PROC: B2181ZZ Fluoroscopy of Left Internal Mammary Bypass Graft using Low Osmolar Contrast (ICD-10-PCS; 2022-03-28)
DX: I21.4 Non-ST elevation (NSTEMI) myocardial infarction (principal); I50.21 Acute systolic (congestive) heart failure; J96.21 Acute and chronic respiratory failure with hypoxia; I13.0 Hypertensive heart and chronic kidney disease with heart failure and stage 1 through stage 4 chronic kidney disease, or unspecified chronic kidney disease; I42.9 Cardiomyopathy, unspecified; I48.21 Permanent atrial fibrillation; Z95.1 Presence of aortocoronary bypass graft; I65.29 Occlusion and stenosis of unspecified carotid artery; E78.00 Pure hypercholesterolemia, unspecified; N40.0 Benign prostatic hyperplasia without lower urinary tract symptoms; M19.90 Unspecified osteoarthritis, unspecified site; K21.9 Gastro-esophageal reflux disease without esophagitis; E11.40 Type 2 diabetes mellitus with diabetic neuropathy, unspecified; N18.31 Chronic kidney disease, stage 3a; E66.9 Obesity, unspecified; E11.22 Type 2 diabetes mellitus with diabetic chronic kidney disease; E87.70 Fluid overload, unspecified; J44.9 Chronic obstructive pulmonary disease, unspecified; Z79.82 Long term (current) use of aspirin; Z79.01 Long term (current) use of anticoagulants; Z79.899 Other long term (current) drug therapy
CPT/HCPCS: 36415; 71046; 80048; 80053; 80061; 82947; 83880; 84484; 85025; 85610; 93005; 93459; 94640

== ENCOUNTER → 2022-04-15 | Outpatient (CLI) | payer MEDICARE, OTHER ==
[~2022-04-15] MED LIST changes: +APIX5TAB PO; +ASPI-1238 PO; +CATHETER FLUSH 10 ML SYR IV PRN; +CLOP75TA28 PO; +EMPA10TA PO; +FURO40TA4 PO; +IOHEXOL 350 MG/ML 100 ML (OMNIPAQUE 350) VIAL IV ONE; +METF-865 PO; +METO100T12 PO; +METO50TA7 PO; +NITR0.4T42 SL; +NS 100 ML (IVPB) BAG IV ONE; +POTA-51 PO; +ROSU20TA32 PO; -RT-ALBUTEROL SULF 2.5 MG/3 ML PRE-MIX VIAL INH ONE; +SACU1TAB2 PO; +WARF-48 PO; +[UNRECOGNIZED DRUG - OTHER] PO
[2022-04-15 09:58] LABS: CREATININE SERUM 1.33 MG/DL (0.60-1.30)
--- NOTE | 2022-04-15 13:39 | Diagnostic Imaging Report ---
PROCEDURE: CT chest with contrast only. TECHNIQUE: Multiple contiguous axial images were obtained through the chest after administration of intravenous contrast. Auto Exposure Controls were utilized during the CT exam to meet ALARA standards for radiation dose reduction. INDICATION: Followup of pulmonary nodules. Comparison with 05/03/2019. FINDINGS: Median sternotomy changes are noted. There is mild cardiomegaly. Good opacification of the aorta and pulmonary artery. The ascending aorta measures 4 cm. No evidence of aortic dissection. Scattered small pulmonary nodules again demonstrated. There has been no appreciable change in the appearance of the lungs since previous exam. No infiltrates have developed. No mediastinal or hilar adenopathy of pathologic size. No pleural effusions or pericardial effusion. No bony lesions. IMPRESSION: 1. Cardiomegaly without evidence of congestive failure. 2. The small 5 mm and less pulmonary nodules scattered throughout the lungs are stable. No further followup is felt necessary. Dictated by: Dictated on workstation # [id number]
== END ==
LOC: RAD 11:15
PROVIDERS: ATTEND Internal Medicine Cardiovascular Disease
DX: I51.7 Cardiomegaly (principal); R91.8 Other nonspecific abnormal finding of lung field
CPT/HCPCS: 36415; 71260; 82565; 84520

== ENCOUNTER → 2022-07-31 | Outpatient (CLI) | payer MEDICARE, OTHER ==
[~2022-07-31] MED LIST changes: -CATHETER FLUSH 10 ML SYR IV PRN; -IOHEXOL 350 MG/ML 100 ML (OMNIPAQUE 350) VIAL IV ONE; -NS 100 ML (IVPB) BAG IV ONE; +RT-ALBUTEROL SULF 2.5 MG/3 ML PRE-MIX VIAL INH ONE
== END ==
LOC: RT 10:41
PROVIDERS: ATTEND Internal Medicine Critical Care Medicine
DX: J44.9 Chronic obstructive pulmonary disease, unspecified (principal); R91.8 Other nonspecific abnormal finding of lung field
CPT/HCPCS: 94060; 94726; 94729

== ENCOUNTER → 2022-10-25 | Outpatient (CLI) | payer MEDICARE, OTHER ==
[~2022-10-25] MED LIST changes: -RT-ALBUTEROL SULF 2.5 MG/3 ML PRE-MIX VIAL INH ONE
== END ==
LOC: CARD 14:05
PROVIDERS: ATTEND Internal Medicine Cardiovascular Disease
DX: I51.7 Cardiomegaly (principal); I25.5 Ischemic cardiomyopathy
CPT/HCPCS: 93306

== ENCOUNTER 2023-07-29 08:21 | Emergency (ER) | payer MEDICARE ==
[~2023-07-29] VITALS: Ht 172 cm; Wt 118.0 kg
[~2023-07-29 08:21] MED LIST changes: +POTA-330 PO; -POTA-51 PO; -ROSU20TA32 PO; +ROSU20TA73 PO
[2023-07-29 08:29] VITALS: BP 134/76
[2023-07-29] MEDS ORDERED: NS IV 1000 ML 1,000 ML IV STA ×2 (08:53→13:12)
[2023-07-29 09:00] LABS: BASOPHILS % (AUTO) 0 % (0-10); EOSINOPHILS % (AUTO) 0 % (0-10); HEMATOCRIT 47 % (40-54); HEMOGLOBIN 15.9 g/dL (13.3-17.7); LYMPHOCYTES # (AUTO) 0.7 10^3/uL (1.0-4.0); LYMPHOCYTES % (AUTO) 9 % (12-44); MEAN CORPUSCULAR HEMOGLOBIN 31 pg (25-34); MEAN CORPUSCULAR HGB CONC 34 g/dL (32-36); MEAN CORPUSCULAR VOLUME 94 fL (80-99); MEAN PLATELET VOLUME 10.7 fL (9.0-12.2); MONOCYTES # (AUTO) 0.4 10^3/uL (0.0-1.0); MONOCYTES % (AUTO) 6 % (0-12); NEUTROPHILS # (AUTO) 6.8 10^3/uL (1.8-7.8); NEUTROPHILS % (AUTO) 84 % (42-75); PLATELET COUNT 153 10^3/uL (130-400)
[2023-07-29] MEDS ORDERED: fentaNYL INJECTION 100 MCG/2 ML VIAL IVP ONE (09:00)
[2023-07-29] MEDS ORDERED: ONDANSETRON INJECTION 4 MG/2 ML (SDV) IVP ONE (09:00)
--- NOTE | 2023-07-29 09:00 | ED Abdominal Pain ---
General Chief Complaint: Abdominal/GI Problems Stated Complaint: ABD PAIN | VOMITING Nursing Triage Note: Pt complains of abd pain in mid left abd that radiates to the back. Pt states he has not passed gas in a couple of days and his last stool was very hard. Pt also fell 1 week ago and his tailbone has been hurting since. Source of Information: Patient, Family () Exam Limitations: No Limitations History of Present Illness Date Seen by Provider: Jul 29, 2023 Time Seen by Provider: 08:45 Initial Comments Patient is a 78-year-old male who presents to the emergency department with a chief complaint of left lower quadrant abdominal pain. He states onset 2 days ago. He had an episode of nausea and vomiting after drinking "a cup of water" this morning. He has not taken anything for the pain. Patient states that the left lower quadrant abdominal pain seems to radiate into the small of his back he states "drinking a cold drink" seems to make the pain worse. He denies any history of abdominal surgeries. He has had bypass and a AAA repair. He is not currently nauseated but he rates his pain a "10" as it is the worst pain he has had in his entire life. He tells me he has not passed gas in 2 days but he has been belching quite a bit. His states that his abdomen looks quite bloated. He denies any recent black or bloody stools, his last bowel movement was yesterday. He relates a history of fall about 2 weeks ago when he tripped backwards over a wheelchair ramp and landed on his tailbone. He has had tailbone pain ever since. History of CABG with stents in 2021. permanent Afib on anticoagulation. DM. Chronic Kidney disease. Timing/Duration: 1-2 Days Severity/Quality: Sharp Location: LLQ Radiation: Other (low back) Modifying Factors: Improves With Other ("drinking a cold drink" makes pain worse) Associated Symptoms: Back Pain, Nausea/Vomiting, Swelling/Mass in Abdomen Allergies and Home Medications Allergies Coded Allergies: No Allergy Information Available (Unverified , 10/28/18) Patient Home Medication List Home Medication List Reviewed: Yes Apixaban (Eliquis) 5 Mg Tablet, 5 MG PO BID Prescribed by: ELEAZAR YANG JR, MD on 03/31/22 1054 Clopidogrel Bisulfate (Clopidogrel) 75 Mg Tablet, 75 MG PO DAILY Prescribed by: ELEAZAR YANG JR, MD on 03/31/22 105 Empagliflozin (Jardiance) 10 Mg Tablet, 10 MG PO DAILY Prescribed by: ELEAZAR YANG JR, MD on 03/31/22 105 Furosemide (Furosemide) 40 Mg Tablet, 40 MG PO DAILY, (Reported) Entered as Reported by: JHON HOLLY on 03/27/22 155 Metoprolol Succinate (Metoprolol Succinate) 50 Mg Tab.er.24h, 100 MG PO BID Prescribed by: ELEAZAR YANG JR, MD on 03/31/22 105 Nitroglycerin (Nitroglycerin) 0.4 Mg Tab.subl, 0.4 MG SL NEEDED PRN for CHEST PAIN (ANGINA) Prescribed by: ELEAZAR YANG JR, MD on 03/31/22 105 Potassium Chloride (Potassium Chloride) 20 Meq Tablet.er, 20 MEQ PO DAILY, (Reported) Entered as Reported by: JHON HOLLY on 03/27/221557 Rosuvastatin Calcium (Rosuvastatin Calcium) 20 Mg Tablet, 20 MG PO HS Prescribed by: ELEAZAR YANG JR, MD on 03/31/22 105 Sacubitril/Valsartan (Entresto 24 mg-26 mg Tablet) 24 Mg-26 Mg Tablet, 0.5 TAB PO BID Prescribed by: ELEAZAR YANG JR, MD on 03/31/22 105 [Kyolic Cholesterol ] , 1 EA PO BID, (Reported) Entered as Reported by: JHON HOLLY on 03/27/221557 Review of Systems Review of Systems Constitutional: see HPI EENTM: No Symptoms Reported Respiratory: No Symptoms Reported Cardiovascular: No Symptoms Reported Gastrointestinal: Abdominal Pain, Constipated, Nausea, Vomiting Genitourinary: Other (decreased output) Musculoskeletal: back pain Skin: no symptoms reported Past Tptmbph-Qvzesr-Psjfgm Hx Patient Social History Tobacco Use?: No Smoking Status: Former Smoker Substance use?: No Alcohol Use?: No Immunizations Up To Date Influenza Vaccine Up-to-Date: Yes; Up-to-Date Past Medical History Abdominal, CABG, Vascular Surgery Atrial Fibrillation, Cardiomyopathy, Chronic Edema/Swelling, Coronary Artery Disease, High Cholesterol, Hypertension Neuropathy Benign Prostatic Hyperpl, Renal Failure Gastroesophageal Reflux Arthritis Diabetes, Non-Insulin dep Physical Exam Vital Signs Vital Signs - First Documented 07/29/23 08:29 Temp 37.0 Pulse 126 Resp 20 B/P (MAP) 134/76 (95) Pulse Ox 95 O2 Delivery Room Air Capillary Refill : Less Than 3 Seconds Height/Weight/BMI Height: '" Weight: lbs. oz. kg; 39.00 BMI Method: General Appearance: WD/WN, mild distress, obese HEENT: PERRL/EOMI Respiratory: lungs clear, normal breath sounds, no respiratory distress, no accessory muscle use Cardiovascular: tachycardia (120 HR), irregularly irregular Gastrointestinal: soft, abnormal bowel sounds (hyperactive), distended, other (tenderness out of proprtion to exam) Extremities: normal range of motion Neurologic/Psychiatric: alert, normal mood/affect, oriented x 3 Skin: normal color, warm/dry Focused Exam Lactate Level 07/29/23 10:16: Lactic Acid Level 2.91*H 07/29/23 12:11: Lactic Acid Level 2.08*H Lactic Acid Level Laboratory Tests Test 07/29/23 10:16 07/29/23 12:11 Lactic Acid Level 2.91 MMOL/L (0.50-2.00) *H 2.08 MMOL/L (0.50-2.00) *H Progress/Results/Core Measures Results/Orders Lab Results Laboratory Tests Test 07/29/23 08:40 07/29/23 10:16 07/29/23 10:18 07/29/23 12:11 Range/Units White Blood Count 8.0 4.3-11.0 10^3/uL Red Blood Count 5.06 4.30-5.52 10^6/uL Hemoglobin 15.9 13.3-17.7 g/dL Hematocrit 47 40-54 % Mean Corpuscular Volume 94 80-99 fL Mean Corpuscular Hemoglobin 31 25-34 pg Mean Corpuscular Hemoglobin Concent 34 32-36 g/dL Red Cell Distribution Width 13.2 10.0-14.5 % Platelet Count 153 130-400 10^3/uL Mean Platelet Volume 10.7 9.0-12.2 fL Immature Granulocyte % (Auto) 0 % Neutrophils (%) (Auto) 84 H 42-75 % Lymphocytes (%) (Auto) 9 L 12-44 % Monocytes (%) (Auto) 6 0-12 % Eosinophils (%) (Auto) 0 0-10 % Basophils (%) (Auto) 0 0-10 % Neutrophils # (Auto) 6.8 1.8-7.8 10^3/uL Lymphocytes # (Auto) 0.7 L 1.0-4.0 10^3/uL Monocytes # (Auto) 0.4 0.0-1.0 10^3/uL Eosinophils # (Auto) 0.0 0.0-0.3 10^3/uL Basophils # (Auto) 0.0 0.0-0.1 10^3/uL Immature Granulocyte # (Auto) 0.0 0.0-0.1 10^3/uL Sodium Level 142 135-145 MMOL/L Potassium Level 4.0 3.6-5.0 MMOL/L Chloride Level 104 98-107 MMOL/L Carbon Dioxide Level 24 21-32 MMOL/L Anion Gap 14 5-14 MMOL/L Blood Urea Nitrogen 22 H 7-18 MG/DL Creatinine 1.66 H 0.60-1.30 MG/DL Estimat Glomerular Filtration Rate 42 BUN/Creatinine Ratio 13 Glucose Level 230 H 70-105 MG/DL Calcium Level 9.9 8.5-10.1 MG/DL Corrected Calcium 9.8 8.5-10.1 MG/DL Total Bilirubin 0.9 0.1-1.0 MG/DL Aspartate Amino Transf (AST/SGOT) 21 5-34 U/L Alanine Aminotransferase (ALT/SGPT) 17 0-55 U/L Alkaline Phosphatase 57 40-136 U/L Total Protein 6.9 6.4-8.2 GM/DL Albumin 4.1 3.2-4.5 GM/DL Lactic Acid Level 2.91 *H 2.08 *H 0.50-2.00 MMOL/L Urine Color YELLOW Urine Clarity CLEAR Urine pH 5.5 5-9 Urine Specific [place] 1.020 1.016-1.022 Urine Protein TRACE NEGATIVE Urine Glucose (UA) 2+ H NEGATIVE Urine Ketones TRACE H NEGATIVE Urine Nitrite NEGATIVE NEGATIVE Urine Bilirubin NEGATIVE NEGATIVE Urine Urobilinogen 0.2 < = 1.0 MG/DL Urine Leukocyte Esterase NEGATIVE NEGATIVE Urine RBC (Auto) NEGATIVE NEGATIVE Urine RBC NONE /HPF Urine WBC RARE /HPF Urine Crystals NONE /LPF Urine Bacteria NEGATIVE /HPF Urine Casts NONE /LPF Urine Mucus NEGATIVE /LPF Urine Culture Indicated NO My Orders Orders - ROBBIE ELENA MD Ua Culture If Indicated (07/29/23 08:41) Ed Iv/Invasive Line Start (07/29/23 08:53) Cbc And Automated Diff (07/29/23 08:53) Comprehensive Metabolic Panel (07/29/23 08:53) Ct Abdomen/Pelvis Wo (07/29/23 08:53) Ns Iv 1000 Ml (Ns Iv 1000 Ml) (07/29/23 08:53) Fentanyl Injection (Fentanyl Injection (07/29/23 09:00) Ondansetron Injection (Ondansetron Inj (07/29/23 09:00) Lactic Acid Analyzer (07/29/23 10:00) Medications Given in ED Current Medications Medications Dose Ordered Sig/Stefanie Route Start Time Stop Time Status Last Admin Dose Admin Fentanyl Citrate 50 mcg ONCE ONCE IVP 07/29/23 09:00 07/29/23 09:01 DC 07/29/23 09:02 50 MCG Ondansetron HCl 4 mg ONCE ONCE IVP 07/29/23 09:00 07/29/23 09:01 DC 07/29/23 09:02 4 MG Vital Signs/I&O 07/29/23 08:29 Temp 37.0 Pulse 126 Resp 20 B/P (MAP) 134/76 (95) Pulse Ox 95 O2 Delivery Room Air Blood Pressure Mean: 95 Progress Progress Note #1: Time: 12:16 Progress Note Call to Ami Elizabeth; Dr Londono (vascular) electronic design engineer Progress Note #2: Time: 12:59 Progress Note Patient seen and evaluated by me. Evaluation today includes history and physical examination, CBC, Chem-12, lactic acid, urinalysis, CT abdomen and pelvis without IV contrast. Pertinent pertinent physical exam findings reveal well-developed well-nourished obese male in moderate to significant distress currently rating his pain a "10". Heart is irregular, tachycardic heart rate 110. Normal BP. Lungs are clear. Abdomen is generally distended with hyperactive bowel sounds, almost borborygmi. He is generally diffusely tender but I am unable to reproduce the intensity of his pain. No rebound or involuntary guarding, his abdomen is soft. He has edema in the bilateral lower extremities 1-2+. Neurologically normal no confusion. States this is the worst pain of his life. Differential diagnosis includes small bowel obstruction, colitis, mesenteric ischemia Labs independently reviewed and interpreted by me. CBC reveals a total white blood cell count of 8, hemoglobin of 15.9 hematocrit of 47, platelet count 153. 84% segmented neutrophils. Chem-12 shows normal electrolytes, glucose elevated at 230. His BUN and creatinine are 22 and 1.66, GFR of 42. Most recent labs in our facility show an in the 1.3 range with a GFR of 54. Prior to March 2022 his renal function was much better. Creatinine around 1.1-1.2. His lactic acid is elevated at 2.91. His urinalysis is positive for 2+ glucose and trace ketones, no evidence of infection. CT scan of the abdomen and pelvis without contrast read by radiologist shows findings concerning for early small bowel obstruction with edema in the area of the mesentery adjacent to a very calcified superior mesenteric artery. I discussed the case with Dr. Malloy on for general surgery today who is concerned that the small bowel obstruction may be due to ischemia from the superior mesenteric artery. He advised that I speak with Dr. Newton, the patient's electronic systems security assessment who advised me that he does not do any vascular procedures in the abdomen. He recommended I speak with Dr. Londono at [facility]. Luckily enough Dr. Londono was on-call and I spoke with him, he is happy to evaluate the patient in the emergency department at [facility]. He states he would recommend ER to ER transfer that way he and the general surgeon on-call can evaluate the patient. Images have been clouded to [facility]. His family has been updated. The patient is more comfortable at this time with moderate pain. Vital signs have improved, he is maintaining a blood pressure 102/79, heart rate is 101. Diagnostic Imaging Diagonstic Imaging: CT Comments [facility]. [place], [place] NAME: CYN BLOCK [facility] REC#: [id number] PT STATUS: REG ER : 1945 PHYSICIAN: ROBBIE ELENA MD ADMIT DATE: 07/29/23/ER Draft Date of Exam:07/29/23 CT ABDOMEN/PELVIS WO PROCEDURE: CT abdomen and pelvis without contrast. TECHNIQUE: Multiple contiguous axial images were obtained through the abdomen and pelvis without the use of intravenous contrast. Auto Exposure Controls were utilized during the CT exam to meet ALARA standards for radiation dose reduction. INDICATION: Abdominal pain radiating into the back. Abnormal bowel function. Patient had a fall 1 week ago with some pelvic pain. COMPARISON: Correlation is limited to overlapped sections obtained at the time of chest CT on 04/15/2022. FINDINGS: There is no acute or subacute fracture. The lung bases are nonacute. There are gallstones present without bile duct dilatation. No appreciable gallbladder wall thickening or pericholecystic fluid. There is a cyst in the left hepatic lobe, chronic. A low attenuating adenomatous nodule in the right adrenal gland is stable. The spleen and pancreas are unremarkable. There is a bifurcated aortoiliac stent graft device present with an infrarenal aneurysmal sac measuring 4.7 x 4.0 cm. No perianeurysmal inflammatory changes, stranding, or findings to suggest leak. No radiodense urinary tract stone. There is no hydroureteronephrosis. There is sigmoid diverticulosis without gallito diverticulitis. There is a trace amount of free fluid along the right colic gutter. No loculated collection or abscess. The appendix is partially visualized and is grossly unremarkable and nondilated. The terminal ileum itself appears unremarkable. There is, however, some segmental thickening of the small bowel wall in the right hemiabdomen at and just above the level of the umbilicus where there is some adjacent stranding, congestion, and edema of the subtending mesentery with the small bowel lumen at that level fecalized. Proximal to that, there is some mild fluid ectasia of the small bowel with some scattered air-fluid levels. Early or partial small bowel obstruction owing to nonspecific focal enteritis is suspected. No pneumatosis. No free air. The patient has severe atherosclerotic vascular calcifications and vascular patency cannot be addressed owing to the absence of contrast. Calcified plaque is severely involving the SMA. If the clinical features are suspect for acute mesenteric ischemia, consider followup with CT angiographic study. The prostate, seminal vesicles, and urinary bladder are normal. No pelvic intra or extraperitoneal fluid or hemorrhage. IMPRESSION: 1. Findings suspicious for early or partial small bowel obstruction. Transition at the segment of fecalized thickened small bowel in the right hemiabdomen with some mild subtending mesenteric stranding and congestion. No pneumatosis or free gas; however, the patient has severe atherosclerotic vascular disease including a stented unruptured infrarenal abdominal aortic aneurysm. 2. There is a small volume of free fluid in the right colic gutter but no loculated collection or abscess. 3. Cholelithiasis but no findings of acute cholecystitis or biliary dilatation. 4. Unremarkable unobstructed urinary tracts and an unremarkable appendix with noninflamed sigmoid diverticulosis. Dictated on workstation # [id number] Dict: 07/29/23 0937 Trans: 07/29/23 0957 [id number] Interpreted by: SIDDHARTH HER Electronically signed by: Departure Communication (Admissions) Time/Spoke to Consulting Phy: 10:[address] Malloy (general surgery) Impression Primary Impression: Abdominal pain Qualified Codes: R10.32 - Left lower quadrant pain Additional Impression: Concern for mesenteric ischemia Disposition: XF [facility] Condition: Stable Departure-Patient Inst. Referrals: ROXIE HILLIARD MD (PCP/Family) Primary Care Physician Copy Copies To 1: ROXIE HILLIARD MD, KATHRYN M MD Jul 29, 2023 09:00
[2023-07-29 09:03] LABS: ALBUMIN 4.1 GM/DL (3.2-4.5)
[2023-07-29 09:05] LABS: CALCIUM 9.9 MG/DL (8.5-10.1)
[2023-07-29 09:06] LABS: TOTAL PROTEIN 6.9 GM/DL (6.4-8.2)
[2023-07-29 09:08] LABS: BILIRUBIN,TOTAL 0.9 MG/DL (0.1-1.0)
[2023-07-29 09:10] LABS: CREATININE SERUM 1.66 MG/DL (0.60-1.30)
--- NOTE | 2023-07-29 09:57 | Diagnostic Imaging Report ---
PROCEDURE: CT abdomen and pelvis without contrast. TECHNIQUE: Multiple contiguous axial images were obtained through the abdomen and pelvis without the use of intravenous contrast. Auto Exposure Controls were utilized during the CT exam to meet ALARA standards for radiation dose reduction. INDICATION: Abdominal pain radiating into the back. Abnormal bowel function. Patient had a fall 1 week ago with some pelvic pain. COMPARISON: Correlation is limited to overlapped sections obtained at the time of chest CT on 04/15/2022. FINDINGS: There is no acute or subacute fracture. The lung bases are nonacute. There are gallstones present without bile duct dilatation. No appreciable gallbladder wall thickening or pericholecystic fluid. There is a cyst in the left hepatic lobe, chronic. A low attenuating adenomatous nodule in the right adrenal gland is stable. The spleen and pancreas are unremarkable. There is a bifurcated aortoiliac stent graft device present with an infrarenal aneurysmal sac measuring 4.7 x 4.0 cm. No perianeurysmal inflammatory changes, stranding, or findings to suggest leak. No radiodense urinary tract stone. There is no hydroureteronephrosis. There is sigmoid diverticulosis without gallito diverticulitis. There is a trace amount of free fluid along the right colic gutter. No loculated collection or abscess. The appendix is partially visualized and is grossly unremarkable and nondilated. The terminal ileum itself appears unremarkable. There is, however, some segmental thickening of the small bowel wall in the right hemiabdomen at and just above the level of the umbilicus where there is some adjacent stranding, congestion, and edema of the subtending mesentery with the small bowel lumen at that level fecalized. Proximal to that, there is some mild fluid ectasia of the small bowel with some scattered air-fluid levels. Early or partial small bowel obstruction owing to nonspecific focal enteritis is suspected. No pneumatosis. No free air. The patient has severe atherosclerotic vascular calcifications and vascular patency cannot be addressed owing to the absence of contrast. Calcified plaque is severely involving the SMA. If the clinical features are suspect for acute mesenteric ischemia, consider followup with CT angiographic study. The prostate, seminal vesicles, and urinary bladder are normal. No pelvic intra or extraperitoneal fluid or hemorrhage. IMPRESSION: 1. Findings suspicious for early or partial small bowel obstruction. Transition at the segment of fecalized thickened small bowel in the right hemiabdomen with some mild subtending mesenteric stranding and congestion. No pneumatosis or free gas; however, the patient has severe atherosclerotic vascular disease including a stented unruptured infrarenal abdominal aortic aneurysm. 2. There is a small volume of free fluid in the right colic gutter but no loculated collection or abscess. 3. Cholelithiasis but no findings of acute cholecystitis or biliary dilatation. 4. Unremarkable unobstructed urinary tracts and an unremarkable appendix with noninflamed sigmoid diverticulosis. Dictated by: Dictated on workstation # [id number]
[2023-07-29 10:36] LABS: CLARITY,URINE CLEAR; COLOR,URINE YELLOW; GLUCOSE, URINE (UA) 2+ (NEGATIVE); KETONES,URINE TRACE (NEGATIVE); NITRITE,URINE NEGATIVE (NEGATIVE); PH,URINE 5.5 (5-9); PROTEIN,URINE TRACE (NEGATIVE)
[2023-07-29 10:37] LABS: BACTERIA,URINE NEGATIVE /HPF; BILIRUBIN,URINE NEGATIVE (NEGATIVE); LEUKOCYTE ESTERASE ,URINE NEGATIVE (NEGATIVE); WBC,URINE RARE /HPF
== END 2023-07-29 14:10 | disposition short-term general hospital (02) ==
LOC: EDUNIT# 08:21 → ER 08:24
DX: R10.32 Left lower quadrant pain (principal); R14.0 Abdominal distension (gaseous); E11.9 Type 2 diabetes mellitus without complications; E66.9 Obesity, unspecified; Z68.39 Body mass index [BMI] 39.0-39.9, adult; Z87.891 Personal history of nicotine dependence; Z87.19 Personal history of other diseases of the digestive system; Z98.890 Other specified postprocedural states
CPT/HCPCS: 36415; 74176; 80053; 81000; 83605; 85025; 96361; 96374; 96375